=== PATIENT | female | born 1965 | race Caucasian/White ===

== ENCOUNTER 2020-06-09 10:12 | Outpatient (REF) | payer OTHER, SELFPAY | END 2020-06-09 10:13 | disposition home or self-care (01) | LOC: HO.LAB 10:12 | PROVIDERS: PCP Internal Medicine; Visit Provider Internal Medicine | DX: Z20.822 Contact with and (suspected) exposure to COVID-19 (principal) | CPT/HCPCS: 36415; C9803; U0003; U0005 ==

== ENCOUNTER 2021-09-24 15:10 | Outpatient (REF) | payer OTHER, SELFPAY ==
--- NOTE | ~2021-09-24 | US_ITS ---
EXAMINATION: US VENOUS ULTRASOUND WITH DOPPLER LOWER EXTREMITY, RIGHT CLINICAL INFORMATION: Right lower extremity edema COMPARISON: None TECHNIQUE: Ultrasound of the deep veins is performed from the hip to the calf with compression sonography and color and pulse Doppler assessment. Spectral analysis with color-flow imaging is performed. FINDINGS: There is normal venous compression and respiratory variation and augmented flow. The visualized common femoral vein, superficial femoral vein, profunda femoral vein, popliteal vein, and the trifurcation region shows no evidence of deep venous thrombosis. There is no significant popliteal fossa cyst. If the patient's symptoms persist, followup ultrasound in 5 days 7 days might be of value to exclude proximal propagation from a non-visualized calf vein. US/US venous duplex LE RT IMPRESSION: No DVT demonstrated in the right lower extremity.
== END 2021-09-24 15:11 | disposition home or self-care (01) ==
LOC: HO.US 15:10
PROVIDERS: PCP Internal Medicine; Visit Provider Nurse Practitioner Family
DX: R60.0 Localized edema (principal)
CPT/HCPCS: 93971

== ENCOUNTER 2021-10-18 11:35 | Outpatient (REF) | payer OTHER, SELFPAY ==
--- NOTE | ~2021-10-18 | XR_ITS ---
EXAMINATION: XR KNEE, LEFT CLINICAL INFORMATION: Left knee pain COMPARISON: None TECHNIQUE: Four views of the left knee. FINDINGS: The tricompartment joint space is maintained normal. No bony erosive changes. No visible acute fracture or dislocation. There is mild suprapatellar spurring. No loose body seen. XR/XR knee LT 2V IMPRESSION: Minimal superior patellar spurring. No visible acute fracture or dislocation.
== END 2021-10-18 11:36 | disposition home or self-care (01) ==
LOC: HO.XRAY 11:35
PROVIDERS: PCP Internal Medicine; Visit Provider Internal Medicine
DX: M25.562 Pain in left knee (principal)
CPT/HCPCS: 73560

== ENCOUNTER 2021-10-19 06:24 | Outpatient (REF) | payer OTHER, SELFPAY ==
[2021-10-19 06:46] LABS: MANUAL DIFF FLAG NO
[2021-10-19 07:40] LABS: Basophils Absolute Auto 0.1 X10*3/uL (0.0-0.2); Basophils Percent Auto 0.9 % (0-2); Eosinophils Absolute Auto 0.4 X10*3/uL (0.0-0.4); Eosinophils Percent Auto 5.2 % (0-4); Hematocrit 38.4 % (37.0-47.0); Hemoglobin 12.6 g/dl (12.0-16.0); Imm Gran Abs Auto 0.02 X10*3/uL (0.00-0.03); Imm Gran Pct Auto 0.3 % (0.0-0.4); Lymphocytes Absolute Auto 1.8 X10*3/uL (1.2-4.9); Lymphocytes Percent Auto 24.5 % (20-40); Mean Corpuscular HGB Conc 32.8 g/dl (31.0-35.0); Mean Corpuscular Volume 88.5 fL (80.0-98.0); Mean Platelet Volume 10.7 fL (9.4-12.3); Monocytes Absolute Auto 0.4 X10*3/uL (0.1-1.2); Monocytes Percent Auto 5.9 % (2-11); Neutrophils Absolute Auto 4.7 x10*3/uL (2.0-8.3); Neutrophils Percent Auto 63.2 % (45-73); Platelet Count 324 X10*3/uL (160-400); Red Blood Count 4.34 X10*6/uL (4.20-5.50); Red Cell Distribution Width 13.5 % (11.0-16.0); White Blood Count 7.5 X10*3/uL (4.8-10.8)
[2021-10-19 07:58] LABS: Alanine Aminotransferase 8 U/L (0-31); Albumin Level 3.9 g/dL (3.5-5.0); Alkaline Phosphatase 86 U/L (39-117); Anion Gap 11 (12-20); Aspartate Amino Transferase 14 U/L (5-31); Bilirubin Total 0.2 mg/dL (0.0-1.0); Blood Urea Nitrogen 12 mg/dL (9-16); Calcium 8.9 mg/dL (8.4-10.2); Carbon Dioxide 26 mmol/L (22-29); Chloride 107 mmol/L (96-108); Cholesterol 169 mg/dL; Estimated Glomerular Filt Rate > 60; Glucose Fasting 91 mg/dL (60-99); HDL Cholesterol 55 mg/dL; LDL Cholesterol Calculated 97 mg/dl; Potassium 4.6 mmol/L (3.3-5.1); Sodium 139 mmol/L (135-145); Total Protein 6.9 g/dL (6.5-8.0); Triglycerides 88 mg/dL
[2021-10-19 08:20] LABS: Thyroid Stimulating Hormone 0.93 uIU/mL (0.32-4.0)
== END 2021-10-19 06:25 | disposition home or self-care (01) ==
LOC: HO.LAB 06:24
PROVIDERS: PCP Internal Medicine; Visit Provider Internal Medicine
DX: Z13.0 Encounter for screening for diseases of the blood and blood-forming organs and certain disorders involving the immune mechanism (principal); E78.5 Hyperlipidemia, unspecified; E03.9 Hypothyroidism, unspecified; I10 Essential (primary) hypertension
CPT/HCPCS: 36415; 80053; 80061; 84443; 85025

== ENCOUNTER 2022-11-18 09:59 | Outpatient (AMB) | payer OTHER, SELFPAY ==
--- NOTE | 2022-11-18 10:04 | MHC.PC.OV ---
Vital Signs 11/18/22 10:06 Height 5 ft 2 in Weight 243 lb 2 oz BMI 44.5 BP 140/76 H Blood Pressure Location Rt brachial Position Sitting Pulse 85 Pulse Source Pulse Oximeter Pulse Oximetry (%) 98 Oxygen Delivery Method Room Air Intake Visit Reasons: Pneumonia /Asthma walk in f/u Intake Note: Patient is here today for asthma, pneumonia, and blister around mouth. Clinical Resource Manager Required: No Assistant Production Manager: Not Required per policy Accompanied by: Self / Same As Patient Allergies docosanol [From Abreva] Allergy (Intermediate, Verified 11/18/22 10:09) Blister Medication List - Last Reconciled 11/18/22 by Issac Lazar MD albuterol sulfate 90 mcg/actuation (ProAir RespiClick) 2 inhalations inhalation Q4H PRN 30 days azithromycin take 500 mg today (day 1), then 250 mg for 4 days (days 2-5) PO betamethasone dipropionate 0.05% 1 appl topical BID 2 weeks levothyroxine 125 mcg PO DAILY mupirocin 2% 1 appl topical TID Tobacco use date assessed: 11/18/22 Dental Screening Dental Screen Date: 11/18/22 Did you have a dental visit in the last 12 months?: No Did you have a dental problem in the last 6 months where you did not have access to dental care?: No Was dental information given to patient?: No HPI Pneumonia /Asthma walk in f/u HPI Details went to and told she has pneumonia; given antibiotics; still coughing PFSH Surgical History H/O unilateral oophorectomy Family History Mother Diabetes Father Diabetes Social History Housing: House Alcohol intake: current Alcohol intake frequency: holidays/special occasions only Alcohol type: wine Patient Tobacco Use Status: Never used Tobacco e-Cigarette/Vaping Use: Never Used Second Hand Smoke Exposure: No service: No Current occupational status: employed Cognitive needs: No Hearing needs: No Vision needs: No Questionnaire PHQ-9 Over the last 2 weeks, how often have you been bothered by any of the following problems? 1. Little interest or pleasure in doing things: not at all 2. Feeling down, depressed, or hopeless: not at all 3. Trouble falling or staying asleep, or sleeping too much: not at all 4. Feeling tired or having little energy: not at all 5. Poor appetite or overeating: not at all 6. Feeling bad about yourself - or that you are a failure or have let yourself or your family down: not at all 7. Trouble concentrating on things, such as reading the newspaper or watching television: not at all 8. Moving or speaking so slowly that other people could have noticed. Or the opposite - being so fidgety or restless that you have been moving around a lot more than usual: not at all 9. Thoughts that you would be better off or of hurting yourself in some way: not at all Total score: 0 Depression Screening Interpretation: Negative Source: Developed by Drs. Jerardo Clay, Janet Olmos, Victor M Perez and colleagues, with an educational cayla from [employer]. Thrive Questionnaire Date Thrive assessed: 11/18/22 I am a: Patient What is your living situation today?: I have a steady place to live Within the past 12 months, did the food you bought not last and you didn't have the money to get more?: Never true Within the past 12 months, did you worry whether your food would run out before you got money to buy more?: Never true Do you have trouble paying for medicines?: No Do you have trouble getting transportation to medical appointments?: No Do you have trouble paying your heating and electricity bill?: No Do you have trouble taking care of your child, family member or friend?: No Do you have trouble with day-to-day activities such as bathing, preparing meals, shopping, managing finances, etc.?: No Are you currently unemployed and looking for a job?: No Are you interested in more education?: No Currently or been in a relationship where the following occur: no concerns reported AUDIT C Alcohol Use Questionnaire (AUDIT-C) 1. How often do you have a drink containing alcohol?: Monthly or less 2. How many drinks containing alcohol do you have on a typical day when you are drinking?: 1 or 2 Total Score: 1 GUICHO-7 AMB Questionnaire GUICHO-7 Date GUICHO - 7 assessed: 11/18/22 Feeling nervous, anxious, or on edge: 0 = Not at all Not being able to stop or control worryin = Not at all Worrying too much about different things: 0 = Not at all Trouble relaxin = Not at all Being so restless that it is hard to sit still: 0 = Not at all Becoming easily annoyed or irritable: 0 = Not at all Feeling afraid as if something awful might happen: 0 = Not at all Total GUICHO-7 score (0-4 normal; 5-9 mild; 10-14 moderate; 15-21 severe): 0 Source: Developed by Drs. Jerardo Clay, Janet Olmos, Victor M Perez and colleagues, with an educational cayla from [employer]. Review of Systems Const Denies chills, Denies headache(s) and Denies weight loss ENT Denies headache(s) Card Denies chest pain, Denies syncope, Denies irregular heart rhythm and Denies dyspnea Resp Denies dyspnea GI Denies abdominal pain, Denies change in stool character, Denies nausea and Denies vomiting Musc Denies deformity and Denies joint swelling Neuro Denies syncope and Denies headache(s) Physical exam (Primary Care) Vital Signs: Last Vital Signs Pulse 85 11/18/22 10:06 BP 140/76 H 11/18/22 10:06 Pulse Ox 98 11/18/22 10:06 Oxygen Delivery Method Room Air 11/18/22 10:06 BMI result Body Mass Index 44.5 morbid obesity BMI Assessment/Plan discussion: High BMI High, discussed plan: lifestyle, weight reduction, dietary and physical activity Tobacco/Smoking Status: Tobacco use Status Tobacco use date assessed 11/18/22 11/18/22 10:11 Patient Tobacco Use Status Never used Tobacco 11/18/22 10:04 e-Cigarette/Vaping Use Never Used 11/18/22 10:11 PHQ-9: PHQ-9 Score PHQ-9: Total score 0 11/18/22 10:11 Depression Screening Interpretation: Negative Thrive Assessment: Date of Thrive Assessment Date Thrive assessed 11/18/22 11/18/22 10:11 Currently or been in a relationship where the following occur: no concerns reported Const General: cooperative and comfortable Resp Auscultation: clear to auscultation bilaterally Percussion: percussion normal Cardio Jugular venous distension: no JVD Rate: regular rate Rhythm: regular rhythm GI Inspection: Yes normal to inspection Extrem General: Yes normal to inspection Assessment and Plan Assessment & Plan (1) Cough: Code(s): R05.9 - Cough, unspecified Plan: cxr and rx Orders: Orders XR chest 2V Today R05.9 - Cough, unspecified Medications: New azithromycin take 500 mg today (day 1), then 250 mg for 4 days (days 2-5) PO 6 tabs 0RF mupirocin 2% 1 appl topical TID 15 grams 1RF Coding Level of Care Code Est Pt Level 3 (09810) Diagnoses Cough R05.9
[2022-11-18 10:06] VITALS: BP 140/76; PULSE 85; O2SAT 98; BMI 44.5
== END 2022-11-18 10:20 | disposition home or self-care (01) ==
PROVIDERS: PCP Internal Medicine; Visit Provider Internal Medicine
DX: R05.9 Cough, unspecified (principal)
CPT/HCPCS: 99213

== ENCOUNTER 2022-11-18 10:32 | Outpatient (REF) | payer OTHER, SELFPAY ==
--- NOTE | ~2022-11-18 | XR_ITS ---
EXAMINATION: XR CHEST CLINICAL INFORMATION: Cough COMPARISON: Chest radiograph from 05/19/2008 TECHNIQUE: 2 views of the chest were obtained. FINDINGS: Bilateral low lung volumes. Interstitial prominence. Bibasilar atelectasis. No pneumothorax. Trachea is midline. Cardiac mediastinal silhouette is not enlarged. Aorta demonstrates tortuosity. Slight levocurvature of the thoracolumbar spine. Soft tissues are unremarkable. XR/XR chest 2V IMPRESSION: 1. Bilateral low lung volumes. 2. Interstitial prominence. 3. Bibasilar atelectasis.
== END 2022-11-18 10:33 | disposition home or self-care (01) ==
LOC: HO.XRAY 10:32
PROVIDERS: PCP Internal Medicine; Visit Provider Internal Medicine
DX: R05.9 Cough, unspecified (principal)
CPT/HCPCS: 71046

== ENCOUNTER 2022-11-20 09:03 | Outpatient (AMB) | payer OTHER, SELFPAY ==
--- NOTE | 2022-11-20 09:06 | MHC.PC.OV ---
Vital Signs 11/20/22 09:07 Height 5 ft 2 in Weight 239 lb 8 oz BMI 43.8 BP 132/80 Blood Pressure Location Lt brachial Position Sitting Pulse 79 Pulse Source Pulse Oximeter Pulse Oximetry (%) 98 Oxygen Delivery Method Room Air Intake Visit Reasons: blisters on lip Intake Note: Patient is here to follow up on blisters on lips. Biometrics Experimentalist Required: No Radioisotope Production Operator: Not Required per policy Accompanied by: Self / Same As Patient Allergies docosanol [From Abreva] Allergy (Intermediate, Verified 11/20/22 09:07) Blister Medication List - Last Reconciled 11/20/22 by Issac Lazar MD albuterol sulfate 90 mcg/actuation (ProAir RespiClick) 2 inhalations inhalation Q4H PRN 30 days azithromycin take 500 mg today (day 1), then 250 mg for 4 days (days 2-5) PO betamethasone dipropionate 0.05% 1 appl topical BID 2 weeks levothyroxine 125 mcg PO DAILY mupirocin 2% 1 appl topical TID Tobacco use date assessed: 11/18/22 HPI blisters on lip HPI Details continues with impetigo, only been on rx for 1 day; started yeterday; needs to cont current rx PFSH Surgical History H/O unilateral oophorectomy Family History Mother Diabetes Father Diabetes Social History Housing: House Alcohol intake: current Alcohol intake frequency: holidays/special occasions only Alcohol type: wine Patient Tobacco Use Status: Never used Tobacco e-Cigarette/Vaping Use: Never Used Second Hand Smoke Exposure: No service: No Current occupational status: employed Cognitive needs: No Hearing needs: No Vision needs: No Questionnaire Thrive Questionnaire Date Thrive assessed: 11/18/22 GUICHO-7 AMB Questionnaire GUICHO-7 Date GUICHO - 7 assessed: 11/18/22 Source: Developed by Drs. Jerardo Clay, Janet Olmos, Victor M Perez and colleagues, with an educational cayla from [employer]. Review of Systems Const Denies chills, Denies headache(s) and Denies weight loss ENT Denies headache(s) Card Denies chest pain, Denies syncope, Denies irregular heart rhythm and Denies dyspnea Resp Denies chest congestion, Denies cough and Denies dyspnea GI Denies abdominal pain, Denies change in stool character, Denies nausea and Denies vomiting Musc Denies deformity and Denies joint swelling Neuro Denies syncope and Denies headache(s) Physical exam (Primary Care) Vital Signs: Last Vital Signs Pulse 79 11/20/22 09:07 BP 132/80 11/20/22 09:07 Pulse Ox 98 11/20/22 09:07 Oxygen Delivery Method Room Air 11/20/22 09:07 BMI result Body Mass Index 43.8 Tobacco/Smoking Status: Tobacco use Status Tobacco use date assessed 11/18/22 11/20/22 09:11 Patient Tobacco Use Status Never used Tobacco 11/20/22 09:11 e-Cigarette/Vaping Use Never Used 11/20/22 09:11 Thrive Assessment: Date of Thrive Assessment Date Thrive assessed 11/18/22 11/20/22 09:11 Const General: cooperative and no acute distress HENMT Head: Yes normal to inspection Eyes General: appearance normal, both eyes and all related structures Neck Neck: Yes normal visual inspection Skin Other: impetigo around lips Assessment and Plan Assessment & Plan (1) Impetigo: Code(s): L01.00 - Impetigo, unspecified Plan: cont current rx Coding Level of Care Code Est Pt Level 3 (07620) Diagnoses Impetigo L01.00
[2022-11-20 09:07] VITALS: BP 132/80; PULSE 79; O2SAT 98; BMI 43.8
== END 2022-11-20 09:35 | disposition home or self-care (01) ==
PROVIDERS: PCP Internal Medicine; Visit Provider Internal Medicine
DX: L01.00 Impetigo, unspecified (principal)
CPT/HCPCS: 99213

== ENCOUNTER 2022-11-23 19:45 | Emergency (ER) | payer OTHER, SELFPAY ==
[2022-11-23 20:19] VITALS: BP 151/97; PULSE 87; RESP 16; TEMP 36.7; O2SAT 99; BMI 40.7
--- NOTE | 2022-11-23 20:25 | ED.HA ---
HPI - Headache General Chief Complaint: Headache Stated Complaint: left sided head pain Time Seen by Provider: 11/24/22 02:39 Source: patient Mode of arrival: ambulatory Limitations: no limitations History of Present Illness HPI Narrative: Patient had rash on her lips with pain in the head for 1 week seen at urgent care please start her on antibiotic for bronchitis comes here as pain is still there in the head with rash on the lips rash was blister with clear fluid is both sides of frenulum and angle of the mouth pain is shooting and behind the ear no rash noticed except for old eczema Related Data Previous Rx's Medication Instructions Recorded albuterol sulfate 90 mcg/actuation 2 inh inhalation Q4H PRN shortness 03/02/21 breath activated powder inhaler of breath or wheezing 30 days #1 ea (ProAir RespiClick) betamethasone dipropionate 0.05 % 1 appl topical BID rash 2 weeks 10/10/21 topical cream #45 grams levothyroxine 125 mcg tablet 125 mcg PO DAILY #90 tabs 04/22/22 azithromycin 250 mg tablet See Rx Instructions PO .COMPLEX #6 11/18/22 tabs mupirocin 2 % topical ointment 1 appl topical TID #15 grams 11/18/22 gabapentin 300 mg capsule 300 mg PO BID #60 caps 11/24/22 valacyclovir 1 gram tablet 1,000 mg PO TID #20 tabs 11/24/22 (Valtrex) amoxicillin 875 mg-potassium 1 tab PO BID #20 tabs 11/26/22 clavulanate 125 mg tablet cmjfszufrx-xdtrrqhbrtpor-aofhdbfh 1 tab PO Q6H PRN pain #20 tabs 11/26/22 50 mg-325 mg-40 mg tablet Allergies Allergy/AdvReac Type Severity Reaction Status Date / Time docosanol [From Abreva] Allergy Intermediate Blister Verified 11/20/22 09:07 Review of Systems Review of Systems: Yes all other systems are reviewed and are negative PMFSH Past Medical History Surgical History H/O unilateral oophorectomy Family History Family History Mother Diabetes Father Diabetes Social History Social History Housing: House Alcohol intake: never Patient Tobacco Use Status: Never used Tobacco Smoked in Last 30 Days: No e-Cigarette/Vaping Use: Never Used Second Hand Smoke Exposure: No Use of substances other than those prescribed or required for medical reasons: No Advance Directives: No Advance Directives Information Provided: Yes service: No Current occupational status: employed Cognitive needs: No Hearing needs: No Vision needs: No Physical Exam Vital Signs: Vital Signs: Last Vital Signs Temp 98.1 F 11/23/22 20:19 Pulse 87 11/23/22 20:19 Resp 16 11/23/22 20:19 BP 151/97 H 11/23/22 20:19 Pulse Ox 99 11/23/22 20:19 O2 Del Method Room Air 11/23/22 20:19 BMI result Body Mass Index 40.7 HEENT: Head: Yes normal to inspection Head images: 1. Ulcerated ulcer lesion upper lip tender to touch 2. Ulcerated lesion on the angle of the mouth left side Ears: hearing grossly normal bilaterally and no periauricular adenopathy General nose exam: Normal external nose present and Abnormal mucous membranes and turbinates present Face and sinus: Yes sinuses nontender and No sinus tenderness Mouth: Normal oral and palatal mucosa present Teeth and gingiva: dentition normal Course Course Course Narrative: This is an RME: Additional HPI, ROS, PE not included below will be deferred to primary provider. Patient is a 57 year old female who presents emergency department for evaluation of concern regarding headache. She reports that on 11/14/22 she was diagnosed with pneumonia for which she received prescription for doxycycline and subsequently azithromycin, 3 days later she developed lesions to her lips, and a reoccurring left occipital/parietal headache since being diagnosed with pneumonia. It does alleviate completely with ibuprofen but then returns. The headache persist which is most concerning for her. reports subjective fevers. Denies neck pain, neck stiffness, photophobia, phonophobia, ear pain Medications Administered Discontinued Medications Generic Name Dose Route Start Last Admin Trade Name Alessandroq PRN Reason Stop Dose Admin Gabapentin 300 mg 11/24/22 03:11 11/24/22 03:38 Gabapentin 300 Mg Capsule PO 11/24/22 03:12 300 mg ONCE ONE Administration Valacyclovir HCl 1,000 mg 11/24/22 03:11 11/24/22 03:37 Valacyclovir Hcl 1,000 Mg Tablet PO 11/24/22 03:12 1,000 mg ONCE ONE Administration Medical Decision Making Medical Decision Making [facility] Narrative: Patient with neuralgic pain secondary to shingles likely as a cause of pain will give gabapentin and valtrex and discharge patient home no temporal artery tenderness discharge patient home Lab Data [facility] Lab Attestation statement: I reviewed the patient's lab results. 11/23/22 20:48 11/23/22 20:48 Labs: Lab Results 11/23/22 11/23/22 Range/Units 20:48 20:48 WBC 9.2 (4.8-10.8) X10*3/uL RBC 4.65 (4.20-5.50) X10*6/uL Hgb 13.7 (12.0-16.0) g/dl Hct 42.1 (37.0-47.0) % MCV 90.5 (80.0-98.0) fL MCH 29.5 (27.0-33.0) pg MCHC 32.5 (31.0-35.0) g/dl RDW 13.6 (11.0-16.0) % Plt Count 334 (160-400) X10*3/uL MPV 10.7 (9.4-12.3) fL Immature Gran % (Auto) 0.4 (0.0-0.4) % Neut % (Auto) 63.5 (45-73) % Lymph % (Auto) 25.9 (20-40) % [place] % (Auto) 6.8 (2-11) % Eos % (Auto) 2.4 (0-4) % Baso % (Auto) 1.0 (0-2) % Lymph # (Auto) 2.4 (1.2-4.9) X10*3/uL [place] # (Auto) 0.6 (0.1-1.2) X10*3/uL Eos # (Auto) 0.2 (0.0-0.4) X10*3/uL Baso # (Auto) 0.1 (0.0-0.2) X10*3/uL Abs Immat Gran (auto) 0.04 H (0.00-0.03) X10*3/uL Absolute Neuts (auto) 5.8 (2.0-8.3) x10*3/uL Absolute Nucleated RBC 0.000 (0.0-0.012) X10*3/uL Nucleated RBC % (auto) 0.0 (0.0-0.2) /100WBC Sodium 143 (135-145) mmol/L Potassium 4.3 (3.3-5.1) mmol/L Chloride 107 (96-108) mmol/L Carbon Dioxide 24 (22-29) mmol/L Anion Gap 16 (12-20) BUN 15 (9-16) mg/dL Creatinine 0.81 (0.5-1.4) mg/dL Estim Creat Clear Calc 90.6 Estimated GFR > 60 Random Glucose 90 (60-115) mg/dL Calcium 9.8 D (8.4-10.2) mg/dL Magnesium 2.2 (1.6-2.6) mg/dL Total Bilirubin 0.3 (0.0-1.0) mg/dL AST 12 (5-31) U/L ALT 11 (0-31) U/L Alkaline Phosphatase 67 (39-117) U/L Total Protein 7.5 (6.5-8.0) g/dL Albumin 4.1 (3.5-5.0) g/dL Discharge Plan Discharge Clinical Impression: Shingles Patient Disposition: Home, Self-Care Instructions: Shingles (ED) Additional Instructions: Likely you have pain from healing shingles Take medication as prescribed and follow with PCP if any concerns Prescriptions: New valacyclovir [Valtrex] 1 gram tablet 1,000 mg PO TID Qty: 20 0RF gabapentin 300 mg capsule 300 mg PO BID Qty: 60 0RF No Action ProAir RespiClick 90 mcg/actuation aerosol powdr breath activated 2 inh inhalation Q4H PRN (Reason: shortness of breath or wheezing) 30 Days Qty: 1 8RF levothyroxine 125 mcg tablet 125 mcg PO DAILY Qty: 90 8RF pvviyyhkkl-rojmbcsmqjxjr-utbw 50-325-40 mg tablet 1 tab PO Q6H PRN (Reason: pain) Qty: 20 0RF amoxicillin-pot clavulanate 875-125 mg tablet 1 tab PO BID Qty: 20 0RF betamethasone dipropionate 0.05 % cream 1 appl topical BID 14 Days Qty: 45 0RF azithromycin 250 mg tablet See Rx Instructions PO .COMPLEX Qty: 6 0RF Rx Instructions: take 500 mg today (day 1), then 250 mg for 4 days (days 2-5) PO mupirocin 2 % ointment 1 appl topical TID Qty: 15 1RF Interventions: ED Discharge Assessment Last Done: 11/24/22 03:56 Discharge Date/Time: 11/24/22 03:59
--- OUTSIDE RECORDS SUMMARY | 2022-11-23 20:52 | XMS_ITS | Continuity of Care Document ---
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
[2022-11-23 20:54] LABS: MANUAL DIFF FLAG NO
[2022-11-23 20:59] LABS: Basophils Absolute Auto 0.1 X10*3/uL (0.0-0.2); Eosinophils Absolute Auto 0.2 X10*3/uL (0.0-0.4); Eosinophils Percent Auto 2.4 % (0-4); Hematocrit 42.1 % (37.0-47.0); Hemoglobin 13.7 g/dl (12.0-16.0); Imm Gran Abs Auto 0.04 X10*3/uL (0.00-0.03); Imm Gran Pct Auto 0.4 % (0.0-0.4); Lymphocytes Absolute Auto 2.4 X10*3/uL (1.2-4.9); Lymphocytes Percent Auto 25.9 % (20-40); Mean Corpuscular HGB Conc 32.5 g/dl (31.0-35.0); Mean Corpuscular Hemoglobin 29.5 pg (27.0-33.0); Mean Corpuscular Volume 90.5 fL (80.0-98.0); Mean Platelet Volume 10.7 fL (9.4-12.3); Monocytes Absolute Auto 0.6 X10*3/uL (0.1-1.2); Monocytes Percent Auto 6.8 % (2-11); Neutrophils Absolute Auto 5.8 x10*3/uL (2.0-8.3); Neutrophils Percent Auto 63.5 % (45-73); Platelet Count 334 X10*3/uL (160-400); Red Blood Count 4.65 X10*6/uL (4.20-5.50); Red Cell Distribution Width 13.6 % (11.0-16.0); White Blood Count 9.2 X10*3/uL (4.8-10.8)
[2022-11-23 21:27] LABS: Alanine Aminotransferase 11 U/L (0-31); Albumin Level 4.1 g/dL (3.5-5.0); Alkaline Phosphatase 67 U/L (39-117); Anion Gap 16 (12-20); Aspartate Amino Transferase 12 U/L (5-31); Bilirubin Total 0.3 mg/dL (0.0-1.0); Blood Urea Nitrogen 15 mg/dL (9-16); Calcium 9.8 mg/dL (8.4-10.2); Carbon Dioxide 24 mmol/L (22-29); Chloride 107 mmol/L (96-108); Creatinine Clr Calc Pharmacy 90.6; Estimated Glomerular Filt Rate > 60; Glucose Random 90 mg/dL (60-115); Magnesium 2.2 mg/dL (1.6-2.6); Potassium 4.3 mmol/L (3.3-5.1); Sodium 143 mmol/L (135-145); Total Protein 7.5 g/dL (6.5-8.0)
[2022-11-24] MEDS: valACYclovir HCL 1,000 MG TABLET 1000 MG PO (03:37)
[2022-11-24] MEDS: Gabapentin 300 MG CAPSULE PO (03:38)
== END 2022-11-24 03:59 | disposition home or self-care (01) ==
PROVIDERS: Nurse Practitioner Family; Emergency Provider Internal Medicine; PCP Internal Medicine
DX: B02.9 Zoster without complications (principal)
CPT/HCPCS: 36415; 80053; 83735; 85025; 99283; 99284

== ENCOUNTER 2022-11-26 18:12 | Emergency (ER) | payer OTHER, SELFPAY ==
--- NOTE | ~2022-11-26 | CT_ITS ---
EXAMINATION: CT HEAD WITHOUT CONTRAST CLINICAL INFORMATION: Left occipital pain COMPARISON: None available. TECHNIQUE: Contiguous axial imaging was performed from the skull base to vertex without intravenous administration of contrast. This CT examination was performed using dose optimization techniques as appropriate, variously including the following: *Automated exposure control *Adjustment of mA and/or kV according to patient size (this includes techniques or standardized protocols for targeted exams where dose is matched to indication/reason for exam; i.e. extremities or head) *Use of iterative reconstruction technique DLP: 668 mGy-cm FINDINGS: There is no acute intra-axial, extra-axial bleed, masses or midline shift. There is no acute infarction evolution. There is no edema. The lateral ventricles are symmetrical in size and configuration without enlargement. Bone windows reveal no calvarial abnormality. There is no scalp soft tissue abnormality. There is air-fluid level in bilateral maxillary sinuses. Rest of the paranasal sinuses and mastoid air cells are well-aerated. CT/CT head/brain wo IV con IMPRESSION: 1. No acute intracranial process seen. 2. Bilateral acute maxillary sinusitis.
[2022-11-26 18:15] VITALS: BP 163/104; PULSE 90; RESP 18; TEMP 36.9; O2SAT 98; BMI 41.6
--- NOTE | 2022-11-26 18:16 | ED_ITS ---
HPI - Headache General Chief Complaint: Head Injury Stated Complaint: Severe head pain Time Seen by Provider: 11/26/22 20:48 Source: patient Mode of arrival: ambulatory Limitations: no limitations History of Present Illness HPI Narrative: Patient has been having left-sided headache for last 2 weeks has some rash on the upper lip was seen here on 11/23 diagnosis at [facility] and started on valacyclovir now comes here as pain in the left occipital area is shooting pain and not going away patient was prescribed gabapentin for the pain patient also does have a running nose with p.o. mucopurulent discharge bilateral no frontal headache no shortness of breath cough is getting better Related Data Previous Rx's Medication Instructions Recorded albuterol sulfate 90 mcg/actuation 2 inh inhalation Q4H PRN shortness 03/02/21 breath activated powder inhaler of breath or wheezing 30 days #1 ea (ProAir RespiClick) betamethasone dipropionate 0.05 % 1 appl topical BID rash 2 weeks 10/10/21 topical cream #45 grams levothyroxine 125 mcg tablet 125 mcg PO DAILY #90 tabs 04/22/22 azithromycin 250 mg tablet See Rx Instructions PO .COMPLEX #6 11/18/22 tabs mupirocin 2 % topical ointment 1 appl topical TID #15 grams 11/18/22 gabapentin 300 mg capsule 300 mg PO BID #60 caps 11/24/22 valacyclovir 1 gram tablet 1,000 mg PO TID #20 tabs 11/24/22 (Valtrex) amoxicillin 875 mg-potassium 1 tab PO BID #20 tabs 11/26/22 clavulanate 125 mg tablet vvqyecexjw-hkgbpzchgqrch-ojylshlk 1 tab PO Q6H PRN pain #20 tabs 11/26/22 50 mg-325 mg-40 mg tablet Allergies Allergy/AdvReac Type Severity Reaction Status Date / Time docosanol [From Abreva] Allergy Intermediate Blister Verified 11/20/22 09:07 Review of Systems Review of Systems: Yes all other systems are reviewed and are negative PMF Past Medical History Surgical History H/O unilateral oophorectomy Family History Family History Mother Diabetes Father Diabetes Social History Social History Housing: House Alcohol intake: never Patient Tobacco Use Status: Never used Tobacco Smoked in Last 30 Days: No e-Cigarette/Vaping Use: Never Used Second Hand Smoke Exposure: No Use of substances other than those prescribed or required for medical reasons: No Advance Directives: No Advance Directives Information Provided: Yes service: No Current occupational status: employed Cognitive needs: No Hearing needs: No Vision needs: No Physical Exam Vital Signs: Vital Signs: Last Vital Signs Temp 98.4 F 11/26/22 18:15 Pulse 90 11/26/22 18:15 Resp 18 11/26/22 18:15 BP 163/104 H 11/26/22 18:15 Pulse Ox 98 11/26/22 18:15 O2 Del Method Room Air 11/26/22 18:15 BMI result Body Mass Index 41.6 Appearance: Alert. Oriented X3. No acute distress. Eyes: No pallor/ icterus ENT: Pharynx normal. Oral Mucosa moist clear nasal discharge no occipital tenderness nose no rash on the scalp Neck: Normal inspection. Neck supple. CVS: Normal heart rate and rhythm. Pulses normal. Respiratory: No respiratory distress. Equal air entry bilateral, no wheezing/rales/rhonchi Abdomen: Soft and nontender. Bowel sounds are present, no mass palpable, no CVA tenderness Skin: Skin warm and dry. Normal skin color. Normal skin turgor. Extremities: No lower extremity edema. No calf tenderness Neuro: Oriented X 3. No motor deficit. No sensory deficit.No cerebellar signs , cranial nerves II-XII intact Course Course Course Narrative: RME - 57 yo female presenting to the ER for evaluation of a severe sharp left sided headache that started over a week ago. No improvement with advil or tylenol. Reports the pain is 8/10. No vision changes, weakness, numbness, tingling. Seen here 3 days ago and diagnosed with shingles - discharged with valtrex and gabapentin. no improvement w/ gabapentin. Plan: treat and reassess Medical Decision Making Medical Decision Making MDM Narrative: Patient nonspecific pain in the left side of the head CT scan of the head showed acute maxillary sinus fluid levels with history of acute maxillary sinusitis. Will discharge patient on Fioricet and Augmentin Discharge Plan Discharge Clinical Impression: Sinusitis, Headache Patient Disposition: Home, Self-Care Instructions: Sinusitis (ED), General Headache (ED) Additional Instructions: Medication for headache as prescribed Take antibiotic for sinus infection Follow with PCP Prescriptions: New rhrypzxcos-nyuzsqefqwqdx-meol 50-325-40 mg tablet 1 tab PO Q6H PRN (Reason: pain) Qty: 20 0RF amoxicillin-pot clavulanate 875-125 mg tablet 1 tab PO BID Qty: 20 0RF No Action ProAir RespiClick 90 mcg/actuation aerosol powdr breath activated 2 inh inhalation Q4H PRN (Reason: shortness of breath or wheezing) 30 Days Qty: 1 8RF levothyroxine 125 mcg tablet 125 mcg PO DAILY Qty: 90 8RF valacyclovir [Valtrex] 1 gram tablet 1,000 mg PO TID Qty: 20 0RF gabapentin 300 mg capsule 300 mg PO BID Qty: 60 0RF betamethasone dipropionate 0.05 % cream 1 appl topical BID 14 Days Qty: 45 0RF azithromycin 250 mg tablet See Rx Instructions PO .COMPLEX Qty: 6 0RF Rx Instructions: take 500 mg today (day 1), then 250 mg for 4 days (days 2-5) PO mupirocin 2 % ointment 1 appl topical TID Qty: 15 1RF
--- NOTE | 2022-11-26 20:44 | PC.NURSE ---
Pt reports neck/head pain 11/28 onset 2 1/2 wks ago and when diagnosed with pneumonia and its been progressively getting worse. Pt denies head strike or injury. Plan of care ongoing.
[2022-11-26] MEDS: Amoxicillin/Potassium Clav 875 MG TABLET PO (22:36)
[2022-11-26] MEDS: Butalb/Acetamin/Caff 50/325/40 TABLET 1 TAB PO (22:36)
--- NOTE | 2022-11-26 22:40 | PC.NURSE ---
Pt medicated per mar.
== END 2022-11-26 22:44 | disposition home or self-care (01) ==
PROVIDERS: Emergency Provider Internal Medicine; PCP Internal Medicine
DX: J32.9 Chronic sinusitis, unspecified (principal); R51.9 Headache, unspecified; Z79.899 Other long term (current) drug therapy
CPT/HCPCS: 70450; 99284

== ENCOUNTER 2023-03-28 09:24 | Outpatient (AMB) | payer OTHER, SELFPAY ==
[2023-03-28 09:29] VITALS: BP 138/70; PULSE 70; O2SAT 100; BMI 44.5
--- NOTE | 2023-03-28 09:29 | A.OFFPC_ITS ---
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 Accompanied by: Self / Same As Patient Allergies docosanol [From Abreva] Allergy (Intermediate, Verified 03/28/23 09:30) Blister Medication List - Last Reconciled 03/28/23 by Issac Lazar MD albuterol sulfate 90 mcg/actuation (ProAir RespiClick) 2 inhalations inhalation Q4H PRN 30 days levothyroxine 125 mcg PO DAILY Tobacco use date assessed: 11/18/22 Dental Screening Dental Screen Date: 03/28/23 Did you have a dental visit in the last 12 months?: No Did you have a dental problem in the last 6 months where you did not have access to dental care?: No Was dental information given to patient?: Yes HPI floater on eyes HPI Details dark spots in vision of both eyes chichi a few weeks PFSH Surgical History H/O unilateral oophorectomy Family History Mother Diabetes Father Diabetes Social History Housing: House Alcohol intake: never Patient Tobacco Use Status: Never used Tobacco e-Cigarette/Vaping Use: Never Used Second Hand Smoke Exposure: No service: No Current occupational status: employed Cognitive needs: No Hearing needs: No Vision needs: No Questionnaire Thrive Questionnaire Date Thrive assessed: 11/18/22 GUICHO-7 AMB Questionnaire GUICHO-7 Date GUICHO - 7 assessed: 11/18/22 Source: Developed by Drs. Jerardo Clay, Janet Olmos, Victor M Perez and colleagues, with an educational cayla from [employer]. Review of Systems Const Denies chills, Denies headache(s) and Denies weight loss ENT Denies headache(s) Card Denies chest pain, Denies syncope, Denies irregular heart rhythm and Denies dyspnea Resp Denies chest congestion, Denies cough and Denies dyspnea GI Denies abdominal pain, Denies change in stool character, Denies nausea and Denies vomiting Musc Denies deformity and Denies joint swelling Neuro Denies syncope and Denies headache(s) Physical exam (Primary Care) Vital Signs: Last Vital Signs Pulse 70 03/28/23 09:29 BP 138/70 03/28/23 09:29 Pulse Ox 100 03/28/23 09:29 Oxygen Delivery Method Room Air 03/28/23 09:29 BMI result Body Mass Index 44.5 Tobacco/Smoking Status: Tobacco use Status Tobacco use date assessed 11/18/22 03/28/23 09:35 Patient Tobacco Use Status Never used Tobacco 03/28/23 09:35 e-Cigarette/Vaping Use Never Used 03/28/23 09:35 Thrive Assessment: Date of Thrive Assessment Date Thrive assessed 11/18/22 03/28/23 09:35 Const General: cooperative, comfortable, no acute distress and alert Neck Neck: Yes no lymphadenopathy Thyroid: Thyroid normal Resp Effort & Inspection: normal respiratory effort Auscultation: clear to auscultation bilaterally Percussion: percussion normal Cardio Jugular venous distension: no JVD Palpation: normal PMI Rate: regular rate Rhythm: regular rhythm Heart sounds: S1 normal heart sound present and S2 normal heart sound present GI Inspection: Yes normal to inspection Palpation (GI): No hepatosplenomegaly present Skin General skin exam: no rashes or lesions noted Extrem General: Yes no clubbing, cyanosis or edema Assessment and Plan Assessment & Plan (1) Vision disturbance: Code(s): H53.9 - Unspecified visual disturbance Plan: ref ophth Orders: Referrals Ophthalmology Referral H43.399 - Other vitreous opacities, unspecified eye Coding Level of Care Code Est Pt Level 3 (92694) Diagnoses Vision disturbance H53.9
== END 2023-03-28 09:43 | disposition home or self-care (01) ==
PROVIDERS: PCP Internal Medicine; Visit Provider Internal Medicine
DX: H53.9 Unspecified visual disturbance (principal)
CPT/HCPCS: 99213

== ENCOUNTER 2024-01-24 08:18 | Emergency (ER) | payer OTHER, SELFPAY ==
[2024-01-24 08:22] VITALS: BP 150/81; PULSE 83; RESP 18; TEMP 36.6; O2SAT 98; BMI 41.6
--- NOTE | 2024-01-24 08:25 | ECG_ITS ---
Test Reason : epigastric pain Blood Pressure : / mmHG Vent. Rate : 074 BPM Atrial Rate : 074 BPM P-R Int : 174 ms QRS Dur : 084 ms QT Int : 390 ms P-R-T Axes : 041 007 014 degrees QTc Int : 432 ms Normal sinus rhythm Normal ECG No previous ECGs available Referred By: Generic ED Physician Electronically Signed By:LYNDA PHAM
[2024-01-24 08:46] VITALS: BP 150/81; PULSE 83; RESP 18; TEMP 36.6; O2SAT 98
[2024-01-24 08:47] LABS: Basophils Absolute Auto 0.1 X10*3/uL (0.0-0.2); Eosinophils Absolute Auto 0.3 X10*3/uL (0.0-0.4); Eosinophils Percent Auto 5.6 % (0-4); Hematocrit 37.8 % (37.0-47.0); Imm Gran Abs Auto 0.01 X10*3/uL (0.00-0.03); Imm Gran Pct Auto 0.2 % (0.0-0.4); Lymphocytes Absolute Auto 1.5 X10*3/uL (1.2-4.9); Lymphocytes Percent Auto 29.2 % (20-40); MANUAL DIFF FLAG NO; Mean Corpuscular HGB Conc 34.4 g/dl (31.0-35.0); Mean Corpuscular Hemoglobin 30.2 pg (27.0-33.0); Mean Corpuscular Volume 87.9 fL (80.0-98.0); Mean Platelet Volume 10.3 fL (9.4-12.3); Monocytes Absolute Auto 0.3 X10*3/uL (0.1-1.2); Neutrophils Absolute Auto 3.1 x10*3/uL (2.0-8.3); Platelet Count 280 X10*3/uL (160-400); Red Cell Distribution Width 13.2 % (11.0-16.0); White Blood Count 5.2 X10*3/uL (4.8-10.8)
--- NOTE | 2024-01-24 08:54 | ED.ABDPAIN ---
HPI - Abdominal Pain General Chief Complaint: Abdominal Pain Stated Complaint: stomach pain, nausea Time Seen by Provider: 01/24/24 08:53 Source: patient Mode of arrival: ambulatory Limitations: no limitations History of Present Illness ED Provider: viet GIRON narrative: Patient otherwise healthy complaining of pain in epigastric area radiating to the left upper for last 1 week with nausea no vomiting no diarrhea no fever or chills no urinary symptoms no history of kidney stone no hematuria no gallstones in the past Related Data Previous Rx's ?Medication ?Instructions ?Recorded albuterol sulfate 90 mcg/actuation 2 inh inhalation Q4H PRN shortness 03/02/21 breath activated powder inhaler of breath or wheezing 30 days #1 ea (ProAir RespiClick) levothyroxine 125 mcg tablet 125 mcg PO DAILY #90 tabs 05/16/23 cefuroxime axetil 250 mg tablet 250 mg PO BID 7 days #14 tabs 01/24/24 omeprazole 40 mg capsule,delayed 40 mg PO DAILY #30 caps 01/24/24 release Allergies Allergy/AdvReac Type Severity Reaction Status Date / Time docosanol [From Abreva] Allergy Intermediate Blister Verified 01/24/24 08:25 Review of Systems Review of Systems Yes all other systems are reviewed and are negative PMFSH Past Medical History Surgical History H/O unilateral oophorectomy Family History Family History Mother Diabetes Father Diabetes Social History Social History Housing: House Alcohol intake: never Patient Tobacco Use Status: Never used Tobacco Smoked in Last 30 Days: No e-Cigarette/Vaping Use: Never Used Second Hand Smoke Exposure: No Use of substances other than those prescribed or required for medical reasons: No Advance Directives: No Advance Directives Information Provided: No Do you have a plan to hurt others: No Plan service: No Current occupational status: employed Cognitive needs: No Hearing needs: No Vision needs: No Physical Exam ED Vital Signs: Vital Signs - 24 hr 01/24/24 08:22 01/24/24 08:46 01/24/24 10:18 Temperature 97.8 F 97.8 F 98.4 F Pulse Rate 83 83 78 Respiratory Rate 18 18 18 Blood Pressure 150/81 H 150/81 H 144/79 H Pulse Oximetry 98 98 98 Oxygen Delivery Method Room Air Room Air Room Air BMI result Body Mass Index 41.6 Appearance: Alert. Oriented X3. No acute distress. Eyes: No pallor or icterus ENT: Pharynx normal. Oral Mucosa moist Neck: Normal inspection. Neck supple. CVS: Normal heart rate and rhythm. Pulses normal. Respiratory: No respiratory distress. Equal air entry bilateral, no wheezing/rales/rhonchi Abdomen: Soft and mild epigastric tenderness Bowel sounds are present, no mass palpable, no CVA tenderness Skin: Skin warm and dry. Normal skin color. Normal skin turgor. Extremities: No lower extremity edema. No calf tenderness Neuro: Oriented X 3. No motor deficit. No sensory deficit.No cerebellar signs , cranial nerves II-XII intact Medical Decision Making Medical Decision Making MDM Narrative: Patient with epigastric pain with workup negative for acute pancreatitis or biliary colic urine is showing WBCs but patient denied dysuria will prescribe patient's Ceftin for UTI likely the cause Differential Diagnosis Differential Diagnoses: The differential diagnosis associated with the presentation includes Gastritis/UTI/kidney stone/gallstone Lab Data [facility] Lab Attestation statement: I reviewed the patient's lab results. 01/24/24 08:41 01/24/24 08:41 Labs: Lab Results 01/24/24 01/24/24 Range/Units 08:41 08:51 WBC 5.2 (4.8-10.8) X10*3/uL RBC 4.30 (4.20-5.50) X10*6/uL Hgb 13.0 (12.0-16.0) g/dl Hct 37.8 (37.0-47.0) % MCV 87.9 (80.0-98.0) fL MCH 30.2 (27.0-33.0) pg MCHC 34.4 (31.0-35.0) g/dl RDW 13.2 (11.0-16.0) % Plt Count 280 (160-400) X10*3/uL MPV 10.3 (9.4-12.3) fL Immature Gran % (Auto) 0.2 (0.0-0.4) % Neut % (Auto) 59.0 (45-73) % Lymph % (Auto) 29.2 (20-40) % Wetzel % (Auto) 5.0 (2-11) % Eos % (Auto) 5.6 H (0-4) % Baso % (Auto) 1.0 (0-2) % Lymph # (Auto) 1.5 (1.2-4.9) X10*3/uL Wetzel # (Auto) 0.3 (0.1-1.2) X10*3/uL Eos # (Auto) 0.3 (0.0-0.4) X10*3/uL Baso # (Auto) 0.1 (0.0-0.2) X10*3/uL Abs Immat Gran (auto) 0.01 (0.00-0.03) X10*3/uL Absolute Neuts (auto) 3.1 (2.0-8.3) x10*3/uL Absolute Nucleated RBC 0.000 (0.0-0.012) X10*3/uL Nucleated RBC % (auto) 0.0 (0.0-0.2) /100WBC Sodium 142 (135-145) mmol/L Potassium 4.1 (3.3-5.1) mmol/L Chloride 110 H (96-108) mmol/L Carbon Dioxide 24 (22-29) mmol/L Anion Gap 12 (12-20) BUN 14 (9-16) mg/dL Creatinine 0.75 (0.5-1.4) mg/dL Estim Creat Clear Calc 97.8 Estimated GFR > 60 Random Glucose 98 (60-115) mg/dL Calcium 9.2 D (8.4-10.2) mg/dL Total Bilirubin 0.5 (0.0-1.0) mg/dL Direct Bilirubin 0.1 (0.0-0.5) mg/dL AST 12 (5-31) U/L ALT 9 (0-31) U/L Alkaline Phosphatase 70 (39-117) U/L Troponin I High Sens < 2.7 (<3.5-17.0) ng/L Total Protein 7.2 (6.5-8.0) g/dL Albumin 4.0 (3.5-5.0) g/dL Lipase 14 (8-78) U/L Urine Color Yellow Urine Appearance Cloudy Urine pH 7.0 (5.0-9.0) Ur Specific Fitzgerald 1.015 (1.005-1.025) Urine Protein Negative (Neg-Trace) mg/dL Urine Glucose (UA) Negative (Negative) mg/dL Urine Ketones Negative (Negative) mg/dL Urine Blood Negative (Negative) Urine Nitrite Negative (Negative) Ur Leukocyte Esterase Large (3+) H (Negative) Urine RBC 0-2 (0-2) /HPF Urine WBC 11-20 H (0-5) /HPF Ur Squamous Epith Cells 11-20 (0-2) /HPF Urine Bacteria 1+ (None Seen) Hyaline Casts 0-2 (0-2) /LPF Medications Administered Discontinued Medications Generic Name Dose Route Start Last Admin Trade Name Freq PRN Reason Stop Dose Admin Al Hydroxide/Mg Hydroxide 30 ml 01/24/24 09:09 01/24/24 09:15 Magnesium Hydrox/Alum Hydrox 30 Ml Oral.Susp PO 01/24/24 09:10 30 ml ONCE ONE Administration Cefuroxime Axetil 250 mg 01/24/24 09:09 01/24/24 09:15 Cefuroxime Axetil 250 Mg Tablet PO 01/24/24 09:10 250 mg ONCE ONE Administration Discharge Plan Discharge Clinical Impression: UTI (urinary tract infection), Gastritis Patient Disposition: Home, Self-Care Instructions: Gastritis (DC), Urinary Tract Infection in Women (DC) Additional Instructions: Drink plenty of fluids Antibiotic as prescribed for urinary tract infection Avoid fried food start taking Prilosec 40 mg daily for gastritis and follow up with your PCP if not better Prescriptions: New cefuroxime axetil 250 mg tablet 250 mg PO BID 7 Days Qty: 14 0RF omeprazole 40 mg capsule,delayed release(DR/EC) 40 mg PO DAILY Qty: 30 0RF No Action ProAir RespiClick 90 mcg/actuation aerosol powdr breath activated 2 inh inhalation Q4H PRN (Reason: shortness of breath or wheezing) 30 Days Qty: 1 8RF levothyroxine 125 mcg tablet 125 mcg PO DAILY Qty: 90 8RF Interventions: ED Discharge Assessment Last Done: 01/24/24 10:18 Discharge Date/Time: 01/24/24 10:24 Print Language: [place]an
[2024-01-24 09:01] LABS: Appearance Urine Cloudy; Color Urine Yellow; Glucose Urine UA Negative (Negative); Leukocyte Esterase Urine Large (3+) (Negative); Nitrite Urine Negative (Negative); Specific Gravity - Urine 1.015 (1.005-1.025); UMIC TRIGGER UACC YES; Urine Blood Negative (Negative); Urine Ketones Negative (Negative); Urine Protein Negative (Neg-Trace)
[2024-01-24 09:06] LABS: Alanine Aminotransferase 9 U/L (0-31); Alkaline Phosphatase 70 U/L (39-117); Anion Gap 12 (12-20); Aspartate Amino Transferase 12 U/L (5-31); Bilirubin Direct 0.1 mg/dL (0.0-0.5); Bilirubin Total 0.5 mg/dL (0.0-1.0); Blood Urea Nitrogen 14 mg/dL (9-16); Calcium 9.2 mg/dL (8.4-10.2); Carbon Dioxide 24 mmol/L (22-29); Chloride 110 mmol/L (96-108); Creatinine Clr Calc Pharmacy 97.8; Estimated Glomerular Filt Rate > 60; Glucose Random 98 mg/dL (60-115); Lipase 14 U/L (8-78); Potassium 4.1 mmol/L (3.3-5.1); Sodium 142 mmol/L (135-145); Total Protein 7.2 g/dL (6.5-8.0)
[2024-01-24 09:06] LABS: Bacteria Urine 1+ (None Seen); Hyaline Casts Urine 0-2 /LPF (0-2); RBC Urine 0-2 /HPF (0-2); UACC Culture Trigger YES
[2024-01-24] MEDS: Magnesium Hydrox/Alum Hydrox 30 ML ORAL.SUSP PO (09:15)
[2024-01-24] MEDS: cefuroxime axetiL 250 MG TABLET PO (09:15)
[2024-01-24 09:21] LABS: Troponin-I High Sensitivity < 2.7 ng/L (<3.5-17.0)
[2024-01-24 10:18] VITALS: BP 144/79; PULSE 78; RESP 18; TEMP 36.9; O2SAT 98
== END 2024-01-24 10:24 | disposition home or self-care (01) ==
PROVIDERS: Emergency Provider Internal Medicine; PCP Internal Medicine
DX: N39.0 Urinary tract infection, site not specified (principal); K29.70 Gastritis, unspecified, without bleeding; R10.13 Epigastric pain; Z79.899 Other long term (current) drug therapy
CPT/HCPCS: 36415; 80048; 80076; 81001; 81003; 83690; 84484; 85025; 87086; 87147; 93005; 99283; 99285

== ENCOUNTER 2024-02-16 08:45 | Outpatient (AMB) | payer OTHER, SELFPAY ==
--- NOTE | 2024-02-16 08:58 | MHC.OFFWIV ---
Intake Vital Signs 02/16/24 08:59 Weight 239 lb BP 130/82 Blood Pressure Location Rt brachial Position Sitting Pulse 78 Pulse Source Pulse Oximeter Pulse Oximetry (%) 98 Oxygen Delivery Method Room Air Intake Visit Reasons: EP Stomach pain, Nausea Intake Note: Patient here for stomach pain and nausea that has been present for about 1 month. She states it usually comes and goes but it has become more constant. Patient Tobacco Use Status: Never used Tobacco Allergies docosanol [From Abreva] Allergy (Intermediate, Verified 02/16/24 09:00) Blister Do you need a note to return to daycare/school/sports/work: Yes HPI HPI Comments History of Present Illness Details Patient is a 58-year-old female complaining of burning in her middle upper abdomen for the last month. She said she has had episodes of nausea with no vomiting. She denies any fevers and states her bowel movements have been fairly normal with a little bit of diarrhea here and there. She has not noted any blood in her stool but states there was some black diarrhea about a month ago. She states she drinks wine on occasion but is not a regular alcohol consumer. She states her diet consists of mostly spicy food and lots of hot peppers. She tells me she has never had an upper endoscopy or a colonoscopy and that she still has her gallbladder. [facility] Surgical History H/O unilateral oophorectomy Family History Mother Diabetes Father Diabetes Social History Housing: House Alcohol intake: never Patient Tobacco Use Status: Never used Tobacco e-Cigarette/Vaping Use: Never Used Second Hand Smoke Exposure: No service: No Current occupational status: employed Cognitive needs: No Hearing needs: No Vision needs: No Review of Systems Const All systems reviewed & are unremarkable except as noted in HPI and below Physical Exam Vital Signs: Last Vital Signs Pulse 78 02/16/24 08:59 BP 130/82 02/16/24 08:59 Pulse Ox 98 02/16/24 08:59 Oxygen Delivery Method Room Air 02/16/24 08:59 Const General: cooperative, healthy appearing, comfortable, no acute distress and well developed Orientation/consciousness: patient oriented x3 Limitations: no limitations HEENT Head: Yes normal to inspection Ears: hearing grossly normal bilaterally General nose exam: Normal external nose present Face and sinus: Yes normal facial exam Eyes General: appearance normal, both eyes and all related structures Neck Neck: Yes normal visual inspection and Yes full ROM Resp Effort & Inspection: normal respiratory effort and able to speak in complete sentences GI Inspection: Yes normal to inspection Palpation (GI): Soft to palpation and Tenderness to palpation present (GI) in the epigastrum (slight); Avelar's sign negative Skin General skin exam: no rashes or lesions noted Neuro General: patient oriented x3 Extrem General: Yes normal to inspection Assessment & Plan Assessment & Plan (1) Abdominal pain in female: Code(s): R10.9 - Unspecified abdominal pain Plan: Vital signs are stable, patient well-appearing and physical exam was relatively benign. Based on HPI, likely GERD +/- an ulcer. Recommended patient follow up with her PCP to get a colonoscopy and ask for an upper endoscopy at the same time to rule out ulcer. In the meanwhile, she can try taking omeprazole twice a day for a week and then go down to regular once a day dosing. Can also add in Pepcid for further symptomatic relief. Plan See above Coding Level of Care Code Est Pt Level 3 (29079) Diagnoses Abdominal pain in female R10.9
[2024-02-16 08:59] VITALS: BP 130/82; PULSE 78; O2SAT 98
== END 2024-02-16 09:27 | disposition home or self-care (01) ==
PROVIDERS: PCP Internal Medicine; Visit Provider Physician Assistant
DX: R10.9 Unspecified abdominal pain (principal)

== ENCOUNTER → 2024-02-16 08:45 | Outpatient (BNVA) | payer OTHER, SELFPAY | PROVIDERS: PCP Internal Medicine; Visit Provider Physician Assistant | DX: R10.9 Unspecified abdominal pain (principal) | CPT/HCPCS: 99212 ==

== ENCOUNTER 2024-02-26 10:24 | Outpatient (AMB) | payer OTHER, SELFPAY ==
[2024-02-26 10:25] VITALS: BP 132/86; PULSE 80; O2SAT 97; BMI 41.3
--- NOTE | 2024-02-26 10:25 | A.OFFPC_ITS ---
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 Accompanied by: Self / Same As Patient Allergies docosanol [From Abreva] Allergy (Intermediate, Verified 02/26/24 10:25) Blister Medication List - Last Reconciled 02/26/24 by Issac Lazar MD albuterol sulfate 90 mcg/actuation (ProAir RespiClick) 2 inhalations inhalation Q4H PRN 30 days levothyroxine 125 mcg PO DAILY Tobacco use date assessed: 02/26/24 Dental Screening Dental Screen Date: 02/26/24 Did you have a dental visit in the last 12 months?: No Did you have a dental problem in the last 6 months where you did not have access to dental care?: No Was dental information given to patient?: Patient has dentist HPI Abdominal pain (pedi) HPI Details LUQ abd pain for a week; seen in er and walk in; given rx for a uti [facility] Surgical History H/O unilateral oophorectomy Family History Mother Diabetes Father Diabetes Social History Housing: House Alcohol intake: never Patient Tobacco Use Status: Never used Tobacco Tobacco use type: Cigarette e-Cigarette/Vaping Use: Never Used Second Hand Smoke Exposure: No service: No Current occupational status: employed Cognitive needs: No Hearing needs: No Vision needs: No Questionnaire PHQ-9 Over the last 2 weeks, how often have you been bothered by any of the following problems? 1. Little interest or pleasure in doing things: not at all 2. Feeling down, depressed, or hopeless: not at all 3. Trouble falling or staying asleep, or sleeping too much: not at all 4. Feeling tired or having little energy: not at all 5. Poor appetite or overeating: not at all 6. Feeling bad about yourself - or that you are a failure or have let yourself or your family down: not at all 7. Trouble concentrating on things, such as reading the newspaper or watching television: not at all 8. Moving or speaking so slowly that other people could have noticed. Or the opposite - being so fidgety or restless that you have been moving around a lot more than usual: not at all 9. Thoughts that you would be better off or of hurting yourself in some way: not at all Total score: 0 Depression Screening Interpretation: Negative Depression Screening Done: Yes Source: Developed by Drs. Jerardo Clay, Janet Olmos, Victor M Perez and colleagues, with an educational cayla from [employer]. Thrive Questionnaire Date Thrive assessed: 02/26/24 I am a: Patient What is your living situation today?: I have a steady place to live Within the past 12 months, did the food you bought not last and you didn't have the money to get more?: Never true Within the past 12 months, did you worry whether your food would run out before you got money to buy more?: Never true Do you have trouble paying for medicines?: No Do you have trouble getting transportation to medical appointments?: No Do you have trouble paying your heating and electricity bill?: No Do you have trouble taking care of your child, family member or friend?: No Do you have trouble with day-to-day activities such as bathing, preparing meals, shopping, managing finances, etc.?: No Are you currently unemployed and looking for a job?: No Are you interested in more education?: No THRIVE Score: 0 AUDIT C Alcohol Use Questionnaire (AUDIT-C) 1. How often do you have a drink containing alcohol?: Monthly or less 2. How many drinks containing alcohol do you have on a typical day when you are drinking?: 1 or 2 Total Score: 1 GUICHO-7 AMB Questionnaire GUICHO-7 Date GUICHO - 7 assessed: 02/26/24 Feeling nervous, anxious, or on edge: 0 = Not at all Not being able to stop or control worryin = Not at all Worrying too much about different things: 0 = Not at all Trouble relaxin = Not at all Being so restless that it is hard to sit still: 0 = Not at all Becoming easily annoyed or irritable: 0 = Not at all Feeling afraid as if something awful might happen: 0 = Not at all Total GUICHO-7 score (0-4 normal; 5-9 mild; 10-14 moderate; 15-21 severe): 0 Source: Developed by Drs. Jerardo Clay, Janet Olmos, Victor M Perez and colleagues, with an educational cayla from [employer]. Review of Systems Const Denies chills, Denies headache(s) and Denies weight loss ENT Denies headache(s) Card Denies chest pain, Denies syncope, Denies irregular heart rhythm and Denies dyspnea Resp Denies chest congestion, Denies cough and Denies dyspnea GI Denies nausea and Denies vomiting Musc Denies deformity and Denies joint swelling Neuro Denies syncope and Denies headache(s) Physical exam (Primary Care) Vital Signs: Last Vital Signs Pulse 80 02/26/24 10:25 BP 132/86 02/26/24 10:25 Pulse Ox 97 02/26/24 10:25 Oxygen Delivery Method Room Air 02/26/24 10:25 BMI result Body Mass Index 41.3 Tobacco/Smoking Status: Tobacco use Status Tobacco use date assessed 02/26/24 02/26/24 10:30 Patient Tobacco Use Status Never used Tobacco 02/26/24 10:30 Tobacco use type Cigarette 02/26/24 10:30 e-Cigarette/Vaping Use Never Used 02/26/24 10:30 PHQ-9: PHQ-9 Score PHQ-9: Total score 0 02/26/24 10:30 Depression Screening Interpretation: Negative Thrive Assessment: Date of Thrive Assessment Date Thrive assessed 02/26/24 02/26/24 10:30 Const General: cooperative, comfortable, no acute distress and alert Neck Neck: Yes no lymphadenopathy Thyroid: Thyroid normal Resp Effort & Inspection: normal respiratory effort Auscultation: clear to auscultation bilaterally Percussion: percussion normal Cardio Jugular venous distension: no JVD Palpation: normal PMI Rate: regular rate Rhythm: regular rhythm Heart sounds: S1 normal heart sound present and S2 normal heart sound present GI Inspection: Yes normal to inspection Palpation (GI): No hepatosplenomegaly present Skin General skin exam: no rashes or lesions noted Extrem General: Yes no clubbing, cyanosis or edema Coding Level of Care Code Est Pt Level 3 (91903) Diagnoses Abdominal pain R10.9 Assessment & Plan Assessment & Plan (1) Abdominal pain: Code(s): R10.9 - Unspecified abdominal pain Category: Medical Plan: rx and US Orders: Orders US abdomen complete Today R10.9 - Unspecified abdominal pain Medications: New ciprofloxacin HCl (Cipro) 250 mg PO BID 10 tabs 0RF tramadol 50 mg PO Q8H PRN 20 tabs 0RF pain
== END 2024-02-26 10:46 | disposition home or self-care (01) ==
LOC: HO.HMCH 10:25
PROVIDERS: PCP Internal Medicine; Visit Provider Internal Medicine
DX: R10.9 Unspecified abdominal pain (principal)

== ENCOUNTER → 2024-02-26 10:24 | Outpatient (BNVA) | payer OTHER, SELFPAY | PROVIDERS: PCP Internal Medicine; Visit Provider Internal Medicine | DX: R10.9 Unspecified abdominal pain (principal) | CPT/HCPCS: 96127; 99212 ==

== ENCOUNTER 2024-03-04 09:18 | Outpatient (AMB) | payer OTHER, SELFPAY ==
[2024-03-04 09:18] VITALS: BP 140/86; PULSE 75; O2SAT 99; BMI 42.0
--- NOTE | 2024-03-04 09:18 | A.OFFPC_ITS ---
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 Accompanied by: Self / Same As Patient Allergies docosanol [From Abreva] Allergy (Intermediate, Verified 03/04/24 09:19) Blister Medication List - Last Reconciled 03/05/24 by Issac Lazar MD albuterol sulfate 90 mcg/actuation (ProAir RespiClick) 2 inhalations inhalation Q4H PRN 30 days levothyroxine 125 mcg PO DAILY tramadol 50 mg PO Q8H PRN Tobacco use date assessed: 02/26/24 Dental Screening Dental Screen Date: 02/26/24 HPI Abdominal pain HPI Details right sided abd pain persists; having US next week; rx will dwnend on results [facility] Surgical History H/O unilateral oophorectomy Family History Mother Diabetes Father Diabetes Social History Housing: House Alcohol intake: never Patient Tobacco Use Status: Never used Tobacco Tobacco use type: Cigarette e-Cigarette/Vaping Use: Never Used Second Hand Smoke Exposure: No service: No Current occupational status: employed Cognitive needs: No Hearing needs: No Vision needs: No Questionnaire Thrive Questionnaire Date Thrive assessed: 02/26/24 GUICHO-7 AMB Questionnaire GUICHO-7 Date GUICHO - 7 assessed: 02/26/24 Source: Developed by Drs. Jerardo Clay, Janet Oloms, Victor M Perez and colleagues, with an educational cayla from [employer]. Review of Systems Const Denies chills, Denies headache(s) and Denies weight loss ENT Denies headache(s) Card Denies chest pain, Denies syncope, Denies irregular heart rhythm and Denies dyspnea Resp Denies chest congestion, Denies cough and Denies dyspnea GI Denies change in stool character, Denies nausea and Denies vomiting Musc Denies deformity and Denies joint swelling Neuro Denies syncope and Denies headache(s) Physical exam (Primary Care) Vital Signs: Last Vital Signs Pulse 75 03/04/24 09:18 BP 140/86 H 03/04/24 09:18 Pulse Ox 99 03/04/24 09:18 Oxygen Delivery Method Room Air 03/04/24 09:18 BMI result Body Mass Index 42.0 Tobacco/Smoking Status: Tobacco use Status Tobacco use date assessed 02/26/24 03/04/24 09:21 Patient Tobacco Use Status Never used Tobacco 03/04/24 09:21 Tobacco use type Cigarette 03/04/24 09:21 e-Cigarette/Vaping Use Never Used 03/04/24 09:21 Thrive Assessment: Date of Thrive Assessment Date Thrive assessed 02/26/24 03/04/24 09:21 Const General: cooperative, comfortable, no acute distress and alert Neck Neck: Yes no lymphadenopathy Thyroid: Thyroid normal Resp Effort & Inspection: normal respiratory effort Auscultation: clear to auscultation bilaterally Percussion: percussion normal Cardio Jugular venous distension: no JVD Palpation: normal PMI Rate: regular rate Rhythm: regular rhythm Heart sounds: S1 normal heart sound present and S2 normal heart sound present GI Inspection: Yes normal to inspection Palpation (GI): No hepatosplenomegaly present Skin General skin exam: no rashes or lesions noted Extrem General: Yes no clubbing, cyanosis or edema Coding Level of Care Code Est Pt Level 3 (67017) Diagnoses Abdominal pain R10.9 Assessment & Plan Assessment & Plan (1) Abdominal pain: Code(s): R10.9 - Unspecified abdominal pain Category: Medical Plan: await US
== END 2024-03-04 09:33 | disposition home or self-care (01) ==
PROVIDERS: PCP Internal Medicine; Visit Provider Internal Medicine
DX: R10.9 Unspecified abdominal pain (principal)

== ENCOUNTER → 2024-03-04 09:18 | Outpatient (BNVA) | payer OTHER, SELFPAY | PROVIDERS: PCP Internal Medicine; Visit Provider Internal Medicine | DX: R10.9 Unspecified abdominal pain (principal) | CPT/HCPCS: 99212 ==

== ENCOUNTER 2024-03-10 07:40 | Outpatient (REF) | payer OTHER, SELFPAY ==
--- NOTE | ~2024-03-10 | US_ITS ---
EXAMINATION: US ABDOMEN COMPLETE CLINICAL INFORMATION: Unspecified abdominal pain. COMPARISON: Renal ultrasound 11/29/2010. TECHNIQUE: Real-time imaging of the abdominal viscera. Color Doppler exam utilized. FINDINGS: PANCREAS: Normal. ABDOMINAL AORTA: The proximal, mid, and distal segments are normal in caliber. INFERIOR VENA CAVA: Visualized portions are normal. LIVER: The liver is normal in size. The liver contour is normal. Slight increased echogenicity of liver parenchyma suggesting fatty change. No focal hepatic lesion. There is no intrahepatic biliary duct dilatation seen. GALLBLADDER: Normal. The gallbladder is physiologically distended without evidence of stones, sludge, polyps, wall thickening or pericholecystic fluid. COMMON BILE DUCT: Normal in caliber measuring 0.3 cm in diameter. RIGHT KIDNEY: Normal. No hydronephrosis. No renal calculi or focal parenchymal lesions. The kidney measures 8.8 cm in maximum dimension. LEFT KIDNEY: Normal. No hydronephrosis. No renal calculi or focal parenchymal lesions. The kidney measures 9.8 cm in maximum dimension. SPLEEN: Normal. The spleen measures 11.1 cm in maximum dimension. FREE FLUID: None. US/US abdomen complete IMPRESSION: 1. No acute abnormality. 2. Mild fatty change of liver. Electronically signed by: Jacobo Bañuelos MD 03/31/2024 03:09 PM BOBBY
== END 2024-03-10 07:41 | disposition home or self-care (01) ==
LOC: HO.US 07:40
PROVIDERS: PCP Internal Medicine; Visit Provider Internal Medicine
DX: R10.9 Unspecified abdominal pain (principal)
CPT/HCPCS: 76700

== ENCOUNTER 2024-03-29 09:12 | Outpatient (AMB) | payer OTHER, SELFPAY ==
[2024-03-29 09:15] VITALS: BP 122/70; PULSE 88; TEMP 36.9; O2SAT 94; BMI 40.9
--- NOTE | 2024-03-29 09:15 | AM.OFFWIN_ITS ---
Intake Vital Signs 03/29/24 09:15 Height 5 ft 3 in Weight 231 lb BMI 40.9 BP 122/70 Blood Pressure Location Lt brachial Position Sitting Pulse 88 Pulse Source Pulse Oximeter Temp 98.4 F Temp Source Oral Pulse Oximetry (%) 94 Oxygen Delivery Method Room Air Intake Visit Reasons: EP asthma, fever, headache, chestpain Intake Note: Patient here for chest pain from coughing, fever, cough, slight congestion and headaches that have been present for about 4 days. Patient Tobacco Use Status: Never used Tobacco Allergies docosanol [From Abreva] Allergy (Intermediate, Verified 03/29/24 09:19) Blister Do you need a note to return to daycare/school/sports/work: Yes HPI EP asthma, fever, headache, chestpain HPI Details This note is constructed using voice recognition software. While every effort has been made to ensure accuracy, feedlot manager errors may have been included. The patient is a 58 year old female who presents to the clinic today with cough, fever, headache, chest wall pain with cough for the past 4 days. 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 She notes that she started with cough, the cough has become more regular and consistent, and led to the muscles in her chest hurting when she coughs. She also notes that she is having to use her albuterol inhaler more. She is having frontal headache, low-grade fever. She is taking Tylenol for the headache and fever only. She has not yet tested for COVID at home. She is wearing a mask when she is around sick people. [facility] Surgical History H/O unilateral oophorectomy Family History Mother Diabetes Father Diabetes Social History Housing: House Alcohol intake: never Patient Tobacco Use Status: Never used Tobacco Tobacco use type: Cigarette e-Cigarette/Vaping Use: Never Used Second Hand Smoke Exposure: No service: No Current occupational status: employed Cognitive needs: No Hearing needs: No Vision needs: No Review of Systems Const All systems reviewed & are unremarkable except as noted in HPI and below Physical Exam Vital Signs: Last Vital Signs Temp 98.4 F 03/29/24 09:15 Pulse 88 03/29/24 09:15 BP 122/70 03/29/24 09:15 Pulse Ox 94 03/29/24 09:15 Oxygen Delivery Method Room Air 03/29/24 09:15 BMI result Body Mass Index 40.9 Const General: cooperative, healthy appearing, comfortable and no acute distress Orientation/consciousness: patient oriented x3 Limitations: no limitations HEENT Head: Yes normal to inspection Ears: hearing grossly normal bilaterally, external ears normal and TM's normal bilaterally General nose exam: Normal external nose present, Normal nares present and No nasal discharge present Face and sinus: Yes normal facial exam and Yes sinuses nontender Mouth: Normal oral and palatal mucosa present and moist mucous membranes Throat: Yes tonsils normal, Yes uvula midline and Yes posterior oropharynx abnormal (Erythema) Eyes General: appearance normal, both eyes and all related structures Neck Neck: Yes normal visual inspection Resp Effort & Inspection: normal respiratory effort, able to speak in complete sentences, Actively coughing, no respiratory distress, not tachypneic, no tripod positioning and no use of accessory muscles Auscultation: clear to auscultation bilaterally and wheezes (clear with cough) Cardio Jugular venous distension: no JVD Rate: regular rate Rhythm: regular rhythm Heart sounds: S1 normal heart sound present, S2 normal heart sound present, no click, no gallops, no murmurs and no rubs Skin General skin exam: no rashes or lesions noted, elasticity normal and turgor normal Neuro General: patient oriented x3 Extrem General: Yes normal to inspection and Yes no clubbing, cyanosis or edema Assessment & Plan Assessment & Plan (1) URI (upper respiratory infection): Code(s): J06.9 - Acute upper respiratory infection, unspecified Qualifiers: URI type: unspecified URI Qualified Code(s): J06.9 - Acute upper respiratory infection, unspecified Plan: Viral swab obtained to rule out Covid, Influenza, and RSV based on symptoms. Advised mask wearing while symptomatic and quarantine per current CDC guidelines. Reviewed at home support methods including hydration, humidification, vix vapor rub, sinus rinse, and otc treatment options. Discussed treatment with antiviral therapy for covid with paxlovid and with Tamiflu for influenza, including appropriate use and side effects, and need to start medication within 5 day of symptom onset, preferably within 48 hours of symptom onset. Patient wishes to decline antiviral therapy. Advised follow up with worsening symptoms such as dyspnea at rest, which would require emergent evaluation. (2) Asthma exacerbation: Code(s): J45.901 - Unspecified asthma with (acute) exacerbation Qualifiers: Asthma severity: mild Asthma persistence: intermittent Qualified Code(s): J45.21 - Mild intermittent asthma with (acute) exacerbation Plan: Advised patient to continue with albuterol inhaler use as needed. We will add prednisone with taper for symptomatic management. Advised patient to follow up with any worsening shortness of breath, fever, or decreased energy for re- evaluation. Plan See above for full details and plan. Orders: Orders SARS-CoV2/FLU/RSV Today J06.9 - Acute upper respiratory infection, unspecified Medications: New prednisone 5 tablets daily for 2 days, then 4 tablets daily for 2 days, then 3 tablets daily for 2 days, then 2 tablets daily for 2 days, then 1 tablet daily for 2 days. 10 mg PO DIRECTED 30 tabs 0RF Coding Level of Care Code Est Pt Level 3 (09464) Diagnoses Upper respiratory tract infection, unspecified type J06.9 URI type: unspecified URI Mild intermittent asthma with exacerbation J45.21 Asthma severity: mild Asthma persistence: intermittent
== END 2024-03-29 09:42 | disposition home or self-care (01) ==
PROVIDERS: PCP Internal Medicine; Visit Provider Registered Nurse
DX: J06.9 Acute upper respiratory infection, unspecified (principal); J45.21 Mild intermittent asthma with (acute) exacerbation

== ENCOUNTER 2024-03-29 09:12 | Outpatient (REF) | payer OTHER, SELFPAY ==
[2024-03-29 13:59] LABS: Influenza A PCR POSITIVE (Negative); Influenza B PCR NEGATIVE (Negative); Resp Syncy Virus RNA Qual PCR NEGATIVE (Negative); SARS COV2 PCR INHOUSE NEGATIVE (Negative)
== END 2024-03-29 09:13 | disposition home or self-care (01) ==
LOC: HO.LAB 09:12
PROVIDERS: PCP Internal Medicine; Visit Provider Registered Nurse
DX: J06.9 Acute upper respiratory infection, unspecified (principal); J45.901 Unspecified asthma with (acute) exacerbation
CPT/HCPCS: 0241U; 99212

== ENCOUNTER 2024-09-06 15:01 | Outpatient (AMB) | payer OTHER, SELFPAY ==
--- NOTE | 2024-09-06 15:22 | A.OFFPC_ITS ---
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 Claims Analyst: Not Required per policy Accompanied by: Self / Same As Patient Allergies docosanol [From Abreva] Allergy (Intermediate, Verified 09/06/24 15:53) Blister Medication List - Last Reconciled 09/06/24 by Emily Adkins PA-C albuterol sulfate 90 mcg/actuation (ProAir RespiClick) 2 inhalations inhalation Q4H PRN 30 days levothyroxine 125 mcg PO DAILY Tobacco use date assessed: 09/06/24 Dental Screening Dental Screen Date: 09/06/24 Did you have a dental visit in the last 12 months?: No Did you have a dental problem in the last 6 months where you did not have access to dental care?: No Was dental information given to patient?: Patient declined HPI IRENE DR Lazar HPI Details 59-year-old female with past medical his tory of impetigo last seen by Dr. Lazar 02/2024 coming in for transfer care. Presenting with concerns of lymphedema. She reports chronic lower extremity swelling, predominantly affecting the left side, without relief over several years. She was previously being seen by vascular and advised compression dressings but could not keep up with the dressing changes and found this difficult. She has not tried compression socks. Standing at her job has intensified discomfort and an inability to manage symptoms. She had a note from her last provider that allowed her to work 4 hours at a time and found this schedule more appropriate for her. She has been on levothyroxine for hypothyroidism but previously achieved better weight control with Synthroid. [facility] Surgical History H/O unilateral oophorectomy Family History Mother Diabetes Father Diabetes Social History Housing: House Alcohol intake: current Alcohol intake frequency: holidays/special occasions only Alcohol type: wine Patient Tobacco Use Status: Never used Tobacco Tobacco use type: Cigarette e-Cigarette/Vaping Use: Never Used Second Hand Smoke Exposure: No service: No Current occupational status: employed Cognitive needs: No Hearing needs: No Vision needs: No Questionnaire PHQ-9 Over the last 2 weeks, how often have you been bothered by any of the following problems? 1. Little interest or pleasure in doing things: not at all 2. Feeling down, depressed, or hopeless: not at all 3. Trouble falling or staying asleep, or sleeping too much: several days 4. Feeling tired or having little energy: several days 5. Poor appetite or overeating: several days 6. Feeling bad about yourself - or that you are a failure or have let yourself or your family down: not at all 7. Trouble concentrating on things, such as reading the newspaper or watching television: not at all 8. Moving or speaking so slowly that other people could have noticed. Or the opposite - being so fidgety or restless that you have been moving around a lot more than usual: not at all 9. Thoughts that you would be better off or of hurting yourself in some way: not at all Total score: 3 Depression Screening Interpretation: Negative Depression Screening Done: Yes Source: Developed by Drs. Jerardo Clay, Janet Olmos, Victor M Perez and colleagues, with an educational cayla from [email or web address]. Thrive Questionnaire Date Thrive assessed: 09/06/24 I am a: Patient What is your living situation today?: I have a steady place to live Within the past 12 months, did the food you bought not last and you didn't have the money to get more?: Never true Within the past 12 months, did you worry whether your food would run out before you got money to buy more?: Never true Do you have trouble paying for medicines?: No Do you have trouble getting transportation to medical appointments?: No Do you have trouble paying your heating and electricity bill?: Yes Do you have trouble taking care of your child, family member or friend?: No Do you have trouble with day-to-day activities such as bathing, preparing meals, shopping, managing finances, etc.?: No Are you currently unemployed and looking for a job?: No Are you interested in more education?: No Please select the resources that you would like help with: None Currently or been in a relationship where the following occur: No concerns reported THRIVE Score: 1 AUDIT C Alcohol Use Questionnaire (AUDIT-C) 1. How often do you have a drink containing alcohol?: Monthly or less 2. How many drinks containing alcohol do you have on a typical day when you are drinking?: 1 or 2 3. How often do you have six or more drinks on one occasion?: Daily or almost daily Total Score: 5 GUICHO-7 AMB Questionnaire GUICHO-7 Date GUICHO - 7 assessed: 09/06/24 Feeling nervous, anxious, or on edge: 0 = Not at all Not being able to stop or control worryin = Not at all Worrying too much about different things: 0 = Not at all Trouble relaxin = Several days Being so restless that it is hard to sit still: 1 = Several days Becoming easily annoyed or irritable: 0 = Not at all Feeling afraid as if something awful might happen: 0 = Not at all Total GUICHO-7 score (0-4 normal; 5-9 mild; 10-14 moderate; 15-21 severe): 2 Source: Developed by Drs. Jerardo Clay, Janet Olmos, Victor M Perez and colleagues, with an educational cayla from [email or web address]. GUICHO-7 Assessment Billing GUICHO-7 Assessment Tool: GUICHO-7 Assessment 62326 Review of Systems Const Denies body aches, Denies chills, Denies fever(s), Denies headache(s) and Denies poor appetite Eyes Reports no additional complaints ENT Denies dizziness and Denies headache(s) Card Denies chest pain, Denies lightheadedness and Denies dyspnea Resp Denies dyspnea GI Denies abdominal pain, Denies nausea and Denies vomiting Reports no additional complaints Musc Reports as per HPI and Denies abnormal gait Skin/Breast Reports system reviewed and no additional complaints, except as documented Neuro Denies abnormal gait, Denies dizziness and Denies headache(s) Psych Reports no additional complaints Physical exam (Primary Care) Vital Signs: Last Vital Signs Temp 96.9 F 09/06/24 15:24 Pulse 83 09/06/24 15:24 BP 142/70 H 09/06/24 15:24 Pulse Ox 100 09/06/24 15:24 Oxygen Delivery Method Room Air 09/06/24 15:24 BMI result Body Mass Index 41.5 Tobacco/Smoking Status: Tobacco use Status Tobacco use date assessed 09/06/24 09/06/24 15:28 Patient Tobacco Use Status Never used Tobacco 09/06/24 15:28 Tobacco use type Cigarette 09/06/24 15:28 e-Cigarette/Vaping Use Never Used 09/06/24 15:28 PHQ-9: PHQ-9 Score PHQ-9: Total score 3 09/06/24 16:00 Depression Screening Interpretation: Negative Thrive Assessment: Date of Thrive Assessment Date Thrive assessed 09/06/24 09/06/24 15:28 Currently or been in a relationship where the following occur: No concerns reported Const General: cooperative, healthy appearing, comfortable and no acute distress Orientation/consciousness: patient oriented x3 HENMT Head: Yes normocephalic Ears: hearing grossly normal bilaterally General nose exam: Normal external nose present Eyes General: appearance normal, both eyes and all related structures Conjunctivae: conjunctivae normal Neck Neck: Yes full ROM and Yes no lymphadenopathy Resp Effort & Inspection: normal respiratory effort Auscultation: clear to auscultation bilaterally, no crackles, no rales, no rhonchi and no wheezes Cardio Rate: regular rate Rhythm: regular rhythm Skin General skin exam: no rashes or lesions noted Neuro General: patient oriented x3 Gait exam (Neuro): Normal gait present Extrem General: Yes normal to inspection, Yes full ROM and Yes edema (jacey 1+ L > R) Psych Affect: normal affect Attitude: cooperative Insight: Good insight present (Psych) Judgement: Good judgement present (Psych) Coding Level of Care Code Est Pt Level 4 (86428) Diagnoses Hypothyroid E03.9 Lower extremity edema R60.0 Fatty liver K76.0 Screening for diabetes mellitus Z13.1 Screening for hypercholesterolemia Z13.220 Additional Codes GUICHO-7 Assessment Billing - GUICHO-7 Assessment Tool: GUICHO-7 Assessment 89791 ([id number]) Assessment & Plan Assessment & Plan (1) Hypothyroid: Code(s): E03.9 - Hypothyroidism, unspecified Category: Medical Plan: Patient is currently on levothyroxine 125 mcg she is due for blood work plan to send Synthroid after review. (2) Lower extremity edema: Code(s): R60.0 - Localized edema Category: Medical Plan: Patient does have chronic asymmetrical lower extremity edema. She has been seen by vascular in the past and compression dressings were used. There is very mild difference but right is greater than left in terms of edema. No calf tenderness, swelling, warmth and no overlying erythema or skin changes. Low suspicion for DVT at this time as symptoms have not changed or worsened. Plan to refer to vascular surgery at this time for further evaluation and treatment. Advised patient to use compression stockings, elevate when possible and activity as tolerated. Patient was provided with a work restriction note for 2 months to avoid working over 4 hours at the time and this will be re-evaluated after vascular has been consulted. (3) Fatty liver: Code(s): K76.0 - Fatty (change of) liver, not elsewhere classified Category: Medical Plan: Healthy diet and regular exercise is encouraged. (4) Screening for diabetes mellitus: Code(s): Z13.1 - Encounter for screening for diabetes mellitus Category: Medical Plan: Ordered for blood work (5) Screening for hypercholesterolemia: Code(s): Z13.220 - Encounter for screening for lipoid disorders Category: Medical Plan: Ordered for blood work Plan The primary focus involves managing lymphedema and optimizing thyroid function. Initiation of compression stockings along with a referral to a vascular specialist were made. Thyroid function tests were ordered to reassess current therapy and enhance weight loss strategies. Regular leg exercises and elevation were recommended. For health maintenance, referrals for a mammogram and stool- based colon cancer screening test were discussed and ordered. This note was constructed using voice recognition software. While every effort has been made to ensure accuracy and thermal surfacing machine operator, still areas may have been included sometimes these areas may affect the content or meeting of the given symptoms. Total time spent caring for the patient today was 30 minutes. This includes time spent before the visit reviewing the chart, time spent during the visit, and time spent after the visit and documentation. Patient was informed and verbally consented to the use of an ambient scribe for clinic note documentation during this visit. Orders: Orders TSH reflex Free T4 09/06/24 E03.9 - Hypothyroidism, unspecified, Z00.00 - Encounter for general adult medical examination without abnormal findings Free T4 (Free Thyroxine) 09/06/24 E03.9 - Hypothyroidism, unspecified, Z00.00 - Encounter for general adult medical examination without abnormal findings Lipid Panel 09/06/24 Z13.220 - Encounter for screening for lipoid disorders Hemoglobin A1c 09/06/24 Z13.1 - Encounter for screening for diabetes mellitus MM tomosynthesis screening BI 09/06/24 Z12.31 - Encounter for screening mammogram for malignant neoplasm of breast Vitamin B12 and Folate 09/06/24 R60.0 - Localized edema, Z00.00 - Encounter for general adult medical examination without abnormal findings Vitamin D 25-OH Total 09/06/24 R60.0 - Localized edema, Z00.00 - Encounter for general adult medical examination without abnormal findings Comprehensive Met. Panel 09/06/24 R60.0 - Localized edema, Z00.00 - Encounter for general adult medical examination without abnormal findings Complete Blood Count Auto Diff 09/06/24 R60.0 - Localized edema, Z00.00 - Encounter for general adult medical examination without abnormal findings B Type Natriuretic Peptide Today R60.0 - Localized edema Referrals Vascular Surgery Referral R60.0 - Localized edema Cologuard Test Z12.11 - Encounter for screening for malignant neoplasm of colon, Z12.12 - Encounter for screening for malignant neoplasm of rectum Medications: New compression socks, x-large As directed: 15-20mmHg 2 ea 0RF compression socks, x-large As directed: 15-20mmHg 2 ea 0RF
[2024-09-06 15:24] VITALS: BP 142/70; PULSE 83; TEMP 36.1; O2SAT 100; BMI 41.5
== END 2024-09-06 16:14 | disposition home or self-care (01) ==
DX: E03.9 Hypothyroidism, unspecified (principal); R60.0 Localized edema; K76.0 Fatty (change of) liver, not elsewhere classified; Z13.1 Encounter for screening for diabetes mellitus; Z13.220 Encounter for screening for lipoid disorders

== ENCOUNTER → 2024-09-06 15:01 | Outpatient (BNVA) | payer OTHER, SELFPAY | PROVIDERS: PCP Internal Medicine | DX: E03.9 Hypothyroidism, unspecified (principal); R60.0 Localized edema; K76.0 Fatty (change of) liver, not elsewhere classified; Z79.899 Other long term (current) drug therapy | CPT/HCPCS: 96127; 99212 ==

== ENCOUNTER 2024-09-21 07:13 | Outpatient (REF) | payer OTHER, SELFPAY ==
[2024-09-21 07:26] LABS: MANUAL DIFF FLAG NO
[2024-09-21 07:55] LABS: Estimated Average Glucose 103 mg/dL; Hemoglobin A1c % 5.2 % (<6.0)
[2024-09-21 08:01] LABS: Basophils Absolute Auto 0.1 X10*3/uL (0.0-0.2); Eosinophils Absolute Auto 0.2 X10*3/uL (0.0-0.4); Eosinophils Percent Auto 4.2 % (0-4); Hematocrit 37.3 % (37.0-47.0); Hemoglobin 12.2 g/dl (12.0-16.0); Imm Gran Abs Auto 0.01 X10*3/uL (0.00-0.03); Imm Gran Pct Auto 0.2 % (0.0-0.4); Lymphocytes Absolute Auto 1.5 X10*3/uL (1.2-4.9); Lymphocytes Percent Auto 28.1 % (20-40); Mean Corpuscular HGB Conc 32.7 g/dl (31.0-35.0); Mean Corpuscular Hemoglobin 29.8 pg (27.0-33.0); Mean Platelet Volume 10.3 fL (9.4-12.3); Monocytes Absolute Auto 0.3 X10*3/uL (0.1-1.2); Monocytes Percent Auto 6.3 % (2-11); Neutrophils Absolute Auto 3.2 x10*3/uL (2.0-8.3); Neutrophils Percent Auto 60.2 % (45-73); Platelet Count 286 X10*3/uL (160-400); Red Cell Distribution Width 13.4 % (11.0-16.0); White Blood Count 5.2 X10*3/uL (4.8-10.8)
[2024-09-21 08:21] LABS: Alanine Aminotransferase 13 U/L (0-31); Alkaline Phosphatase 78 U/L (39-117); Anion Gap 9 (12-20); Aspartate Amino Transferase 20 U/L (5-31); Bilirubin Total 0.4 mg/dL (0.0-1.0); Blood Urea Nitrogen 14 mg/dL (9-16); Calcium 9.1 mg/dL (8.4-10.2); Carbon Dioxide 29 mmol/L (22-29); Chloride 110 mmol/L (96-108); Cholesterol 189 mg/dL (<200); Estimated Glomerular Filt Rate > 60; Glucose Random 89 mg/dL (60-115); HDL Cholesterol 66 mg/dL (>40); LDL Cholesterol Calculated 102 mg/dL (<100); Potassium 4.3 mmol/L (3.3-5.1); Sodium 144 mmol/L (135-145); Total Protein 6.8 g/dL (6.5-8.0); Triglycerides 105 mg/dL (<150)
[2024-09-21 08:41] LABS: Free T4 (Free Thyroxine) 0.96 ng/dL (0.71-1.85); TSH reflex Free T4 6.45 uIU/mL (0.32-4.0); Vitamin D 25-OH Total 29.1 ng/mL (>30)
[2024-09-21 08:45] LABS: Folate 8.5 ng/mL (> or = 4.0); Vitamin B12 239 pg/mL (200-900)
[2024-09-21 08:46] LABS: B Type Natriuretic Peptide 22 pg/mL (<100)
== END 2024-09-21 07:14 | disposition home or self-care (01) ==
LOC: HO.LAB 07:13
DX: Z00.00 Encounter for general adult medical examination without abnormal findings (principal); R60.0 Localized edema; Z13.1 Encounter for screening for diabetes mellitus; E03.9 Hypothyroidism, unspecified; Z13.220 Encounter for screening for lipoid disorders
CPT/HCPCS: 36415; 80053; 80061; 82306; 82607; 82746; 83036; 83880; 84439; 84443; 85025

== ENCOUNTER 2024-10-05 13:56 | Outpatient (AMB) | payer OTHER, SELFPAY ==
--- NOTE | 2024-10-05 14:04 | A.OFFVIS_ITS ---
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 Left leg is swollen and painful. Noticeably larger than the right.Patient works on her feet. Legs are restless at night. 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 Complaints include discomfort/pain and swelling of lower extremities with some cramping, fatigue, and heaviness of the lower extremities. It has been affecting their daily activities including working (she is only able to work 4h at a time), standing, and physical activity. It is noted more so in the left leg, but the right leg is affected as well. She states she has been dealing with this for years, but it is getting worse. She has been seen before and had lymphedema wraps, which she states did not work. She has not been tested for venous insufficiency yet. She denies any lymphorrhea currently, but states she has had it in the past. She is not a diabetic and is a nonsmoker. Patient denies any previous venous surgery or injections. Patient denies any history of DVT/ PE. Patient denies any history of phlebitis. Trial of compression includes - lymphedema wraps, compression (she is unable to find socks that fit), and edema. They now present for vascular evaluation regarding their varicose veins. [facility] Surgical History H/O unilateral oophorectomy Family History Mother Diabetes Father Diabetes Social History Housing: House Alcohol intake: current Alcohol intake frequency: holidays/special occasions only Alcohol type: wine Patient Tobacco Use Status: Never used Tobacco Tobacco use type: Cigarette e-Cigarette/Vaping Use: Never Used Second Hand Smoke Exposure: No service: No Current occupational status: employed Cognitive needs: No Hearing needs: No Vision needs: No Review of Systems Const Reports as per HPI and Denies weakness ENT Reports Normal hearing present and Denies dizziness Card Reports as per HPI, Denies chest pain, Denies chest pain at rest, Denies chest pain with activity, Denies dyspnea and Denies dyspnea on exertion Resp Reports as per HPI, Denies cough, Denies dyspnea and Denies dyspnea on exertion GI Reports as per HPI, Denies abdominal pain, Denies nausea and Denies vomiting Musc Denies numbness Skin/Breast Reports as per HPI, Denies erythema and Denies wounds Neuro Reports Normal hearing present, Denies dizziness, Denies numbness, Denies Sensory deficit (Neuro) and Denies weakness Psych Reports no additional complaints Endo Reports no additional complaints Physical Exam Const General: healthy appearing and no acute distress Orientation/consciousness: patient oriented x3 HEENT Head: Yes normal to inspection Ears: hearing grossly normal bilaterally Mouth: Normal oral and palatal mucosa present Resp Effort & Inspection: normal respiratory effort and able to speak in complete sentences Auscultation: clear to auscultation bilaterally Cardio Jugular venous distension: no JVD Rate: regular rate Rhythm: regular rhythm Heart sounds: S1 normal heart sound present and S2 normal heart sound present Bruits: no abdominal aortic bruits, no carotid bruits, no femoral bruits and no renal bruits Peripheral pulses: Peripheral pulses 2+ throughout GI Inspection: Yes normal to inspection Palpation (GI): No Abdominal aortic bruit present Skin General skin exam: no rashes or lesions noted Wounds: no wounds Hair: normal Neuro General: patient oriented x3 Cranial nerves: Yes Normal hearing present Cognition (Neuro): normal cognition Gait exam (Neuro): Normal gait present Motor exam (neuro): 5/5 motor strength present throughout Sensory Exam: No Sensory deficit (Neuro) Extrem Other: Left lower extremity: +3 pitting edema. Discoloration noted around the ankles. No lymphorrhea noted. Faint but palpable DP pulses; difficult to find with edema. Right lower extremity: +2/3 pitting edema. Discoloration noted around the ankles. No lymphorrhea noted. Faint but palpable DP pulses; difficult to find with edema. CEAP: C - 4 E - primary A - superficial P - reflux General: Yes normal to inspection, Yes full ROM, Yes capillary refill normal and Yes normal gait Assessment & Plan Assessment & Plan (1) Varicose veins of both lower extremities with inflammation: Code(s): I83.11 - Varicose veins of right lower extremity with inflammation; I83.12 - Varicose veins of left lower extremity with inflammation Category: Medical Plan: Zaira is presenting today on a referral from her PCP for ongoing and worsening bilateral lower extremity swelling and discomfort, L slightly greater than R. She does have a hx of lymphedema and this is likely the issue she is continuing with; however, she has not been ruled out for venous insufficiency. In short, the patient has evidence of venous insufficiency. I have discussed the pathophysiology with the patient. In addition I have provided informational material regarding venous disease to the patient. We have discussed conservative measures including compression, elevation, and exercise. She has tried compression socks in the past, but are unable to find any that are large enough to fit her legs. I have taken the liberty of ordering venous insufficiency testing with the patient. They will follow up with me after testing. The patient had an opportunity to ask questions regarding the treatment plan. All questions were answered. Imaging studies, laboratory studies and physical exam results were discussed and reviewed in detail. No major barriers to understanding were identified. The patient expressed understanding and agreement with the above treatment plan. The patient is aware they should contact our office by phone for worsening of the current condition or the appearance of new symptoms. Thank you for allowing me to participate in the vascular care of this patient. If you have any questions or concerns regarding the treatment for the above condition please do not hesitate to contact me. The office telephone contact is [phone]. This note is constructed using voice recognition software. While every effort has been made to ensure accuracy, experimental rocketsled mechanic errors may have been included. Thank you for allowing me to participate in the care of your patient. Yours sincerely, IDALIA Joya Orders: Orders US venous duplex LE BI 1 Week I83.11 - Varicose veins of right lower extremity with inflammation, I83.12 - Varicose veins of left lower extremity with inflammation Medications: Discontinued 2 levothyroxine Discontinued Reason: Patient no longer taking 125 mcg PO DAILY 90 tabs 1RF levothyroxine Discontinued Reason: Patient no longer taking 137 mcg PO DAILY 30 caps 1RF Coding Level of Care Code New Pt Level 4 (92925) Diagnoses Varicose veins of both lower extremities with inflammation I83.11; I83.12
== END 2024-10-05 14:16 | disposition home or self-care (01) ==
LOC: HO.HVS 13:57
PROVIDERS: Visit Provider Physician Assistant Surgical
DX: I83.11 Varicose veins of right lower extremity with inflammation (principal); I83.12 Varicose veins of left lower extremity with inflammation
CPT/HCPCS: 99204

== ENCOUNTER → 2024-10-05 13:56 | Outpatient (BNVA) | payer OTHER, SELFPAY | PROVIDERS: Visit Provider Physician Assistant Surgical | DX: I83.11 Varicose veins of right lower extremity with inflammation (principal); I83.12 Varicose veins of left lower extremity with inflammation | CPT/HCPCS: 99202 ==

== ENCOUNTER 2024-10-20 04:52 | Emergency (ER) | payer OTHER, SELFPAY ==
--- NOTE | ~2024-10-20 | CT_ITS ---
CLINICAL HISTORY: left flank pain CT abdomen and pelvis without contrast Comparison: None provided Findings: The lung bases are clear. The unenhanced liver, gallbladder, spleen, adrenal glands and pancreas are unremarkable. No urinary calculus or obstructive uropathy. Several calcifications are present within the pelvis, none of which appear definitively intraureteral. Uterus and adnexa are unremarkable. Moderate fecal retention within the colon. No bowel obstruction. No acute osseous finding. Impression: No urinary calculus or obstructive uropathy. Moderate fecal retention throughout the colon. This document has been electronically signed by: Meliton Juarez MD on 10/20/2024 09:38:56
[2024-10-20 04:56] VITALS: BP 150/90; PULSE 99; RESP 20; TEMP 36.1; O2SAT 99; BMI 41.4
[2024-10-20 05:37] VITALS: BP 119/60; PULSE 80; RESP 18; O2SAT 98
[2024-10-20 06:39] VITALS: BP 118/69; PULSE 72; RESP 18; TEMP 36.5; O2SAT 95
--- NOTE | 2024-10-20 08:07 | ED.BACK ---
HPI - Back Pain/Injury General Chief Complaint: Back Pain/Injury Stated Complaint: pinched nerve Time Seen by Provider: 10/20/24 07:27 History of Present Illness HPI Narrative: Patient is a 59-year-old female presented today with having pain to the left flank area radiating down to her legs. Patient claims she works in a [employer] when she lifted some water and turn she started having the pain. There is no fever no chills there is no bowel urinary incontinence. There is no focal weakness. Patient claims the pain was very sharp. 59 years old no history of the same pain in the past no history of kidney stones in the past. Related Data Previous Rx's ?Medication ?Instructions ?Recorded albuterol sulfate 90 mcg/actuation 2 inh inhalation Q4H PRN shortness 03/02/21 breath activated powder inhaler of breath or wheezing 30 days #1 ea (ProAir RespiClick) compression socks, x-large #2 ea 09/06/24 levothyroxine 137 mcg tablet 137 mcg PO DAILY #30 tabs 10/05/24 cefuroxime axetil 500 mg tablet 500 mg PO BID 7 days #14 tabs 10/20/24 cyclobenzaprine 10 mg tablet 10 mg PO TID PRN pain #14 tabs 10/20/24 ibuprofen 400 mg tablet 400 mg PO Q6H PRN pain #20 tabs 10/20/24 Allergies Allergy/AdvReac Type Severity Reaction Status Date / Time docosanol (From Abreva) Allergy Intermediate Blister Verified 10/20/24 04:58 Review of Systems Review of Systems: Positive back pain Yes all other systems are reviewed and are negative [facility] Past Medical History Attestation statement: The following information was validated with the patient. Surgical History H/O unilateral oophorectomy Family History Family History Mother Diabetes Father Diabetes Social History Social History Housing: House Alcohol intake: current Alcohol intake frequency: holidays/special occasions only Alcohol type: wine Patient Tobacco Use Status: Never used Tobacco Tobacco use type: Cigarette Smoked in Last 30 Days: No e-Cigarette/Vaping Use: Never Used Second Hand Smoke Exposure: No Use of substances other than those prescribed or required for medical reasons: No Advance Directives: No Do you have a plan to hurt others: No Plan Patient : No service: No Current occupational status: employed Cognitive needs: No Hearing needs: No Vision needs: No Physical Exam Vital Signs: Vital Signs: Last Vital Signs Temp 97.8 F 10/20/24 08:20 Pulse 80 10/20/24 08:20 Resp 14 10/20/24 08:20 BP 120/78 10/20/24 08:20 Pulse Ox 97 10/20/24 08:20 O2 Del Method Room Air 10/20/24 08:20 BMI result Body Mass Index 41.4 Appearance: Alert. Oriented X3. No acute distress. Eyes: Pupils equal, round and reactive to light. ENT: Pharynx normal. Neck: Normal inspection. Neck supple. No lymph nodes noted. No crepitus CVS: Normal heart rate and rhythm. Pulses normal. Normal S1 and S2 Respiratory: No respiratory distress. Breath sounds normal. No Wheezing. No rales Abdomen: Soft and nontender. No rigidity. No distention. good BS x4 Skin: Skin warm and dry. Normal skin color. Normal skin turgor. Extremities: No lower extremity edema. Neurovascular intact to all extremities. No Lacerations. No Rash Neuro: Oriented X 3. No motor deficit. No sensory deficit. Moving all extermities. No slurred speech. Good sensation in bilateral lower extremity negative straight leg raise test. Medications Administered Discontinued Medications Generic Name Dose Route Start Last Admin Trade Name Freq PRN Reason Stop Dose Admin Sodium Chloride 1,000 mls @ 999 mls/hr 10/20/24 08:00 10/20/24 08:44 Ns IV 10/20/24 09:00 999 mls/hr .Q1H1M IVON Administration Ketorolac Tromethamine 15 mg 10/20/24 08:01 10/20/24 08:44 Ketorolac Tromethamine 15 Mg/Ml Vial IVPUSH 10/20/24 08:02 15 mg ONCE ONE Administration Midazolam HCl 1 mg 10/20/24 08:04 10/20/24 08:44 Midazolam Hcl 2 Mg/2 Ml Vial IVPUSH 10/20/24 08:05 1 mg ONCE ONE Administration Medical Decision Making Medical Decision Making [facility] Narrative: Patient 59 years old presented today with having flank pain back pain radiating down to the leg. CT scan of the abdomen pelvis was grossly negative for any acute evidence of kidney stone. No obstruction no diverticulitis. Patient's urine was heavily contaminated. Question infection versus contamination. Nevertheless will give a dose of Rocephin will give patient antibiotics for outpatient basis. Will discharge patient home. Additional pain medication given for the back pain. Will give patient a couple days off from work. Close follow-up advised. Differential Diagnosis Differential Diagnoses: The differential diagnosis associated with the presentation includes Shingles, UTI, Admission/Observation Consideration of admission/observation: Escalation of care including admission/observation considered Lab Data [facility] Lab Attestation statement: I reviewed the patient's lab results. 10/20/24 08:20 10/20/24 08:20 Labs: Lab Results 10/20/24 10/20/24 Range/Units 08:20 08:35 WBC 5.2 (4.8-10.8) X10*3/uL RBC 3.96 L (4.20-5.50) X10*6/uL Hgb 12.0 (12.0-16.0) g/dl Hct 35.2 L (37.0-47.0) % MCV 88.9 (80.0-98.0) fL MCH 30.3 (27.0-33.0) pg MCHC 34.1 (31.0-35.0) g/dl RDW 13.2 (11.0-16.0) % Plt Count 277 (160-400) X10*3/uL MPV 9.9 (9.4-12.3) fL Immature Gran % (Auto) 0.2 (0.0-0.4) % Neut % (Auto) 66.5 (45-73) % Lymph % (Auto) 23.0 (20-40) % [place] % (Auto) 6.0 (2-11) % Eos % (Auto) 3.3 (0-4) % Baso % (Auto) 1.0 (0-2) % Lymph # (Auto) 1.2 (1.2-4.9) X10*3/uL [place] # (Auto) 0.3 (0.1-1.2) X10*3/uL Eos # (Auto) 0.2 (0.0-0.4) X10*3/uL Baso # (Auto) 0.1 (0.0-0.2) X10*3/uL Abs Immat Gran (auto) 0.01 (0.00-0.03) X10*3/uL Absolute Neuts (auto) 3.5 (2.0-8.3) x10*3/uL Absolute Nucleated RBC 0.000 (0.0-0.012) X10*3/uL Nucleated RBC % (auto) 0.0 (0.0-0.2) /100WBC Sodium 142 (135-145) mmol/L Potassium 4.3 (3.3-5.1) mmol/L Chloride 110 H (96-108) mmol/L Carbon Dioxide 26 (22-29) mmol/L Anion Gap 10 L (12-20) BUN 19 H (9-16) mg/dL Creatinine 0.61 (0.5-1.4) mg/dL Estim Creat Clear Calc 118.7 Estimated GFR > 60 Random Glucose 104 (60-115) mg/dL Calcium 8.7 (8.4-10.2) mg/dL Total Bilirubin 0.3 (0.0-1.0) mg/dL Direct Bilirubin 0.1 (0.0-0.5) mg/dL AST 16 (5-31) U/L ALT 7 (0-31) U/L Alkaline Phosphatase 73 (39-117) U/L Total Protein 6.6 (6.5-8.0) g/dL Albumin 4.0 (3.5-5.0) g/dL Lipase 16 (8-78) U/L Urine Color Yellow Urine Appearance Cloudy Urine pH 5.5 (5.0-9.0) Ur Specific [place] 1.015 (1.005-1.025) Urine Protein Negative (Neg-Trace) mg/dL Urine Glucose (UA) Negative (Negative) mg/dL Urine Ketones Negative (Negative) mg/dL Urine Blood Negative (Negative) Urine Nitrite Negative (Negative) Ur Leukocyte Esterase Large (3+) H (Negative) Urine RBC 0-2 (0-2) /HPF Urine WBC >50 H (0-5) /HPF Ur Squamous Epith Cells >20 (0-2) /HPF Urine Bacteria 4+ (None Seen) Hyaline Casts 0-2 (0-2) /LPF Independent Interpretation I performed an independent interpretation of an: CT Scan (No obstruction no abscess no perforation) Radiology Impression Discussion of test interpretation with radiology: I have reviewed the radiologist's reading. Discharge Plan Discharge Clinical Impression: Sciatica, Urinary tract infection Patient Disposition: Home, Self-Care Instructions: Urinary Tract Infection in Women (DC) Prescriptions: New ibuprofen 400 mg tablet 400 mg PO Q6H PRN (Reason: pain) Qty: 20 0RF cefuroxime axetil 500 mg tablet 500 mg PO BID 7 Days Qty: 14 0RF cyclobenzaprine 10 mg tablet 10 mg PO TID PRN (Reason: pain) Qty: 14 0RF No Action ProAir RespiClick 90 mcg/actuation aerosol powdr breath activated 2 inh inhalation Q4H PRN (Reason: shortness of breath or wheezing) 30 Days Qty: 1 8RF levothyroxine 137 mcg tablet 137 mcg PO DAILY Qty: 30 2RF (DME) compression socks, x-large Misc See Rx Instructions .Route Qty: 2 0RF Rx Instructions: As directed: 15-20mmHg Referrals: Physician,Unknown J [Primary Care Provider, Medical] Referral Note: Follow-up with your primary in 2 days Stand Alone Forms: Work/School Release Print Language: Turkmen
[2024-10-20 08:20] VITALS: BP 120/78; PULSE 80; RESP 14; TEMP 36.6; O2SAT 97
[2024-10-20 08:25] LABS: MANUAL DIFF FLAG NO
--- NOTE | 2024-10-20 08:28 | PC.NURSE ---
Pt ambulatory with a steady gait to BR to provide urine sample.
[2024-10-20 08:32] LABS: Hematocrit 35.2 % (37.0-47.0); Hemoglobin 12.0 g/dl (12.0-16.0); Imm Gran Abs Auto 0.01 X10*3/uL (0.00-0.03); Imm Gran Pct Auto 0.2 % (0.0-0.4); Lymphocytes Absolute Auto 1.2 X10*3/uL (1.2-4.9); Mean Corpuscular HGB Conc 34.1 g/dl (31.0-35.0); Mean Corpuscular Hemoglobin 30.3 pg (27.0-33.0); Mean Corpuscular Volume 88.9 fL (80.0-98.0); NRBC Abs Auto 0.000 X10*3/uL (0.0-0.012); NRBC Pct Auto 0.0 /100WBC (0.0-0.2); Platelet Count 277 X10*3/uL (160-400); Red Blood Count 3.96 X10*6/uL (4.20-5.50); White Blood Count 5.2 X10*3/uL (4.8-10.8)
[2024-10-20 08:42] LABS: Alanine Aminotransferase 7 U/L (0-31); Albumin Level 4.0 g/dL (3.5-5.0); Alkaline Phosphatase 73 U/L (39-117); Anion Gap 10 (12-20); Aspartate Amino Transferase 16 U/L (5-31); Blood Urea Nitrogen 19 mg/dL (9-16); Calcium 8.7 mg/dL (8.4-10.2); Carbon Dioxide 26 mmol/L (22-29); Chloride 110 mmol/L (96-108); Creatinine Clr Calc Pharmacy 118.7; Estimated Glomerular Filt Rate > 60; Lipase 16 U/L (8-78); Potassium 4.3 mmol/L (3.3-5.1); Sodium 142 mmol/L (135-145); Total Protein 6.6 g/dL (6.5-8.0)
[2024-10-20 08:43] LABS: Appearance Urine Cloudy; Glucose Urine UA Negative (Negative); PH 5.5 (5.0-9.0); Specific Gravity - Urine 1.015 (1.005-1.025); UMIC TRIGGER UACC YES
[2024-10-20 08:48] LABS: UACC Culture Trigger YES
[2024-10-20 10:38] VITALS: BP 123/69; PULSE 68; RESP 12; TEMP 36.5; O2SAT 98
[2024-10-20 11:48] VITALS: BP 123/69; PULSE 68; RESP 12; TEMP 36.5; O2SAT 98
== END 2024-10-20 11:49 | disposition home or self-care (01) ==
PROVIDERS: Emergency Provider Emergency Medicine Emergency Medical Services
DX: M54.42 Lumbago with sciatica, left side (principal); N39.0 Urinary tract infection, site not specified
CPT/HCPCS: 36415; 74176; 80048; 80076; 81001; 83690; 85025; 87086; 96361; 96374; 96375; 99284; 99285; J0696; J1171; J1885; J2250

== ENCOUNTER → 2024-10-20 08:00 | Outpatient (BNV) | payer OTHER, SELFPAY | PROVIDERS: Emergency Provider Emergency Medicine Emergency Medical Services; Visit Provider Radiology Vascular & Interventional Radiology | DX: K56.41 Fecal impaction (principal) | CPT/HCPCS: 74176 ==

== ENCOUNTER 2024-10-27 08:16 | Outpatient (REF) | payer OTHER, SELFPAY ==
--- NOTE | ~2024-10-27 | US_ITS ---
EXAMINATION: US LOWER EXTREMITY VENOUS (REFLUX EXAM), BILATERAL CLINICAL INFORMATION: Varices. COMPARISON: None. TECHNIQUE: Color flow triplex imaging and compression Doppler was performed to evaluate both the deep and the superficial systems bilaterally. To evaluate the superficial system, the examination was performed in the upright position. Color-flow Doppler ultrasound and compression ultrasound were utilized. In addition, maneuvers were utilized to demonstrate reflux. FINDINGS: 1. DEEP VENOUS ULTRASOUND OF THE RIGHT LOWER EXTREMITY: Common Femoral Vein: Compressible, normal respiratory variation and augmented flow. Femoral Vein: Compressible, normal color flow and augmentation. Popliteal Vein: Compressible, normal augmentation. Deep Reflux: There is no evidence of reflux in the deep system in either the common femoral vein, superficial femoral or the popliteal vein. There is no evidence of a Rm's cyst. 2. SUPERFICIAL ULTRASOUND WITH DOPPLER OF RIGHT LOWER EXTREMITY: GREAT SAPHENOUS VEIN: Saphenofemoral Junction: 0.8 cm; Reflux: 0 ms Proximal Thigh: 0.5 cm; Reflux: 0 ms Mid Thigh: 0.4 cm; Reflux: 0 ms Distal Thigh: 0.3 cm; Reflux: 0 ms At Knee: 0.4 cm; Reflux: 0 ms Proximal Calf: 0.2 cm; Reflux: 0 ms Mid Calf: 0.2 cm; Reflux: 0 ms Distal Calf: 0.3 cm; Reflux: 0 ms DUPLICATED MEDIAL GREAT SAPHENOUS VEIN: Diameter: 0.2-0.4 cm. Reflux: NA DUPLICATED LATERAL GREAT SAPHENOUS VEIN: Diameter: None imaged Reflux: NA SMALL SAPHENOUS VEIN: Saphenopopliteal Junction: 0.2 cm; Reflux: 0 ms Proximal: 0.3 cm; Reflux: 0 ms Distal: 0.2 cm; Reflux: 952 ms VEIN OF GIACOMINI: Size: NA Reflux: NA PERFORATORS: Location: Mid calf. Size: 2.2 cm. Reflux: NA VARICOSITIES: Location: Mid thigh and at the knee. Size: 0.3 cm. Reflux: 1088 ms at the knee. 3. DEEP VENOUS ULTRASOUND OF THE LEFT LOWER EXTREMITY: Common Femoral Vein: Compressible, normal respiratory variation and augmented flow. Femoral Vein: Compressible, normal color flow and augmentation. Popliteal Vein: Compressible, normal augmentation. Deep Reflux: There is no evidence of reflux in the deep system in either the common femoral vein, superficial femoral or the popliteal vein. There is no evidence of a Rm's cyst. 4. SUPERFICIAL ULTRASOUND WITH DOPPLER OF LEFT LOWER EXTREMITY: GREAT SAPHENOUS VEIN: Saphenofemoral Junction: 1.2 cm; Reflux: 0 ms Proximal Thigh: 0.4 cm; Reflux: 0 ms Mid Thigh: 0.4 cm; Reflux: 0 ms Distal Thigh: 0.3 cm; Reflux: 0 ms At Knee: 0.3 cm; Reflux: 0 ms Proximal Calf: 0.2 cm; Reflux: 0 ms Mid Calf: 0.2 cm; Reflux: 0 ms Distal Calf: 0.2 cm; Reflux: 0 ms DUPLICATED MEDIAL GREAT SAPHENOUS VEIN: Diameter: None imaged Reflux: NA DUPLICATED LATERAL GREAT SAPHENOUS VEIN: Diameter: 0.3 cm. Reflux: NA SMALL SAPHENOUS VEIN: Saphenopopliteal Junction: 0.6 cm; Reflux: 0 ms Proximal: 0.3 cm; Reflux: 0 ms Distal: 0.2 cm; Reflux: 0 ms VEIN OF GIACOMINI: Size: 0.3 cm. Reflux: NA PERFORATORS: Location: Distal thigh and proximal calf. Size: 0.1-0.3 cm. Reflux: NA VARICOSITIES: Location: None Imaged Size: NA Reflux: NA US/US venous insuf bilat IMPRESSION: Right: Venous insufficiency, small saphenous vein at the distal calf. Varices with reflux at the knee level. Left: No venous insufficiency. Perforators without reflux. No gross varices. Electronically signed by: Charles Mcclure MD 10/27/2024 09:49 AM EDT
== END 2024-10-27 08:17 | disposition home or self-care (01) ==
LOC: HO.US 08:16
PROVIDERS: Visit Provider Physician Assistant Surgical
DX: I83.11 Varicose veins of right lower extremity with inflammation (principal); I83.12 Varicose veins of left lower extremity with inflammation
CPT/HCPCS: 93970

== ENCOUNTER → 2024-10-27 08:19 | Outpatient (BNV) | payer OTHER, SELFPAY | PROVIDERS: Visit Provider Radiology Diagnostic Radiology | DX: I87.2 Venous insufficiency (chronic) (peripheral) (principal); I83.812 Varicose veins of left lower extremity with pain | CPT/HCPCS: 93970 ==

== ENCOUNTER 2024-11-08 08:39 | Outpatient (AMB) | payer OTHER, SELFPAY ==
--- NOTE | 2024-11-08 08:42 | MHC.PC.OV ---
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 Accompanied by: Self / Same As Patient Allergies docosanol (From Abreva) Allergy (Intermediate, Verified 11/08/24 09:15) Blister Medication List - Last Reconciled 11/08/24 by Emily Adkins PA-C albuterol sulfate 90 mcg/actuation (ProAir RespiClick) 2 inhalations inhalation Q4H PRN 30 days cefuroxime axetil 500 mg PO BID 7 days compression socks, x-large As directed: 15-20mmHg cyclobenzaprine 10 mg PO TID PRN ibuprofen 400 mg PO Q6H PRN levothyroxine 137 mcg PO DAILY Tobacco use date assessed: 11/08/24 Dental Screening Dental Screen Date: 11/08/24 Did you have a dental visit in the last 12 months?: No Did you have a dental problem in the last 6 months where you did not have access to dental care?: No Was dental information given to patient?: Yes HPI f/u leg swelling HPI Details 59-year-old female with past medical history of hypothyroidism last seen 08/2024 coming in for follow up.? In review of the notes, patient was seen by vascular surgery 09/2024 plan to rule out venous insufficiency with ultrasound and follow up afterwards.? The ultrasound was completed 10/2024 showing venous insufficiency of the right small saphenous vein of the distal calf and varices with reflux of the knee level. Presenting with leg swelling and ultrasound review. Venous insufficiency was identified on the right side, specifically in the small saphenous vein with reflux noted at the knee level. The patient reports swelling in both legs, with the left leg being more swollen despite no venous insufficiency detected on ultrasound. The swelling in the left leg has been persistent for approximately six to seven years. The patient uses compression stockings due to prolonged standing at work, which provides some relief. Thyroid dysfunction was noted with abnormal thyroid levels, and levothyroxine dosage was adjusted. [facility] Surgical History H/O unilateral oophorectomy Family History Mother Diabetes Father Diabetes Social History Housing: House Alcohol intake: current Alcohol intake frequency: holidays/special occasions only Alcohol type: wine Patient Tobacco Use Status: Never used Tobacco Tobacco use type: Cigarette e-Cigarette/Vaping Use: Never Used Second Hand Smoke Exposure: No service: No Current occupational status: employed Cognitive needs: No Hearing needs: No Vision needs: No Questionnaire Thrive Questionnaire Date Thrive assessed: 11/08/24 I am a: Patient What is your living situation today?: I have a steady place to live Within the past 12 months, did the food you bought not last and you didn't have the money to get more?: Never true Within the past 12 months, did you worry whether your food would run out before you got money to buy more?: Never true Do you have trouble paying for medicines?: No Do you have trouble getting transportation to medical appointments?: No Do you have trouble paying your heating and electricity bill?: Yes Do you have trouble taking care of your child, family member or friend?: No Do you have trouble with day-to-day activities such as bathing, preparing meals, shopping, managing finances, etc.?: No Are you currently unemployed and looking for a job?: No Are you interested in more education?: No Please select the resources that you would like help with: None Currently or been in a relationship where the following occur: No concerns reported THRIVE Score: 1 GUICHO-7 AMB Questionnaire GUICHO-7 Date GUICHO - 7 assessed: 11/08/24 Source: Developed by Drs. Jerardo Clay, Janet Olmos, Victor M Perez and colleagues, with an educational cayla from [employer]. Review of Systems Const Denies body aches, Denies chills, Denies fever(s), Denies headache(s) and Denies poor appetite Eyes Reports no additional complaints ENT Denies dizziness and Denies headache(s) Card Denies chest pain, Denies edema, Denies lightheadedness and Denies dyspnea Resp Denies dyspnea GI Denies nausea and Denies vomiting Reports no additional complaints Musc Reports no additional complaints and Denies abnormal gait Skin/Breast Reports system reviewed and no additional complaints, except as documented Neuro Denies abnormal gait, Denies dizziness and Denies headache(s) Psych Reports no additional complaints Physical exam (Primary Care) Vital Signs: Last Vital Signs Pulse 75 11/08/24 08:43 BP 138/72 11/08/24 08:43 Pulse Ox 99 11/08/24 08:43 Oxygen Delivery Method Room Air 11/08/24 08:43 BMI result Body Mass Index 41.8 Tobacco/Smoking Status: Tobacco use Status Tobacco use date assessed 11/08/24 11/08/24 08:45 Patient Tobacco Use Status Never used Tobacco 11/08/24 08:45 Tobacco use type Cigarette 11/08/24 08:45 e-Cigarette/Vaping Use Never Used 11/08/24 08:45 Thrive Assessment: Date of Thrive Assessment Date Thrive assessed 11/08/24 11/08/24 08:45 Currently or been in a relationship where the following occur: No concerns reported Const General: cooperative, healthy appearing, comfortable and no acute distress Orientation/consciousness: patient oriented x3 HENMT Head: Yes normocephalic Ears: hearing grossly normal bilaterally General nose exam: Normal external nose present Eyes General: appearance normal, both eyes and all related structures Conjunctivae: conjunctivae normal Neck Neck: Yes full ROM and Yes no lymphadenopathy Resp Effort & Inspection: normal respiratory effort Auscultation: clear to auscultation bilaterally, no crackles, no rales, no rhonchi and no wheezes Cardio Rate: regular rate Rhythm: regular rhythm Skin General skin exam: no rashes or lesions noted Neuro General: patient oriented x3 Gait exam (Neuro): Normal gait present Extrem Other: jacey LE swelling L > R without overlying skin changes, tenderness, warmth, redness General: Yes normal to inspection, Yes full ROM and No edema Psych Affect: normal affect Attitude: cooperative Insight: Good insight present (Psych) Judgement: Good judgement present (Psych) Coding Level of Care Code Est Pt Level 3 (53455) Diagnoses Varicose veins of both lower extremities with inflammation I83.11; I83.12 Fatty liver K76.0 Hypothyroid E03.9 Morbid obesity with BMI of 40.0-44.9, adult E66.01; Z68.41 Assessment & Plan Assessment & Plan (1) Varicose veins of both lower extremities with inflammation: Code(s): I83.11 - Varicose veins of right lower extremity with inflammation; I83.12 - Varicose veins of left lower extremity with inflammation Category: Medical Plan: Patient recently completed venous insufficiency ultrasound which did reveal venous insufficiency and reflux on the right side. I advised patient to reach out to vascular surgery to reschedule this appointment. Continue with compression stockings, exercise as tolerated and leg elevation when possible. Low suspicion for DVT at this time as her presentation has not changed or worsened. (2) Fatty liver: Code(s): K76.0 - Fatty (change of) liver, not elsewhere classified Category: Medical Plan: Healthy diet and regular exercise is encouraged. (3) Hypothyroid: Code(s): E03.9 - Hypothyroidism, unspecified Category: Medical Plan: Continue to monitor thyroid levels reminded patient about blood work due to recent increase in levothyroxine (4) Morbid obesity with BMI of 40.0-44.9, adult: Code(s): E66.01 - Morbid (severe) obesity due to excess calories; Z68.41 - Body mass index [BMI] 40.0-44.9, adult Category: Medical Plan: Healthy diet and regular exercise is encouraged. Referral was placed to diet and nutrition today Plan The patient is advised to follow up with a vascular surgeon to further evaluate the venous insufficiency and leg swelling, particularly on the left side where no venous insufficiency was detected. Compression stockings are recommended during physical activities to help manage the swelling, especially given the patient's occupation requiring prolonged standing. Thyroid levels will be retested in the coming weeks to assess the effectiveness of the adjusted levothyroxine dosage. The patient is encouraged to maintain a healthy lifestyle, including regular exercise and dietary management, to address hypercholesterolemia and support weight management. This note was constructed using voice recognition software. While every effort has been made to ensure accuracy and cumulative effects analyst, still areas may have been included sometimes these areas may affect the content or meeting of the given symptoms. Total time spent caring for the patient today was 20 minutes. This includes time spent before the visit reviewing the chart, time spent during the visit, and time spent after the visit and documentation. Patient was informed and verbally consented to the use of an ambient scribe for clinic note documentation during this visit. Orders: Referrals Web Page Developer Nutrition Referral E66.01 - Morbid (severe) obesity due to excess calories, Z68.41 - Body mass index [BMI] 40.0-44.9, adult
[2024-11-08 08:43] VITALS: BP 138/72; PULSE 75; O2SAT 99; BMI 41.8
== END 2024-11-08 10:05 | disposition home or self-care (01) ==
LOC: HO.HMCH 08:40
DX: I83.11 Varicose veins of right lower extremity with inflammation (principal); E66.01 Morbid (severe) obesity due to excess calories; Z68.41 Body mass index [BMI] 40.0-44.9, adult; I83.12 Varicose veins of left lower extremity with inflammation; K76.0 Fatty (change of) liver, not elsewhere classified; E03.9 Hypothyroidism, unspecified

== ENCOUNTER → 2024-11-08 08:39 | Outpatient (BNVA) | payer OTHER, SELFPAY | DX: I83.11 Varicose veins of right lower extremity with inflammation (principal); I83.12 Varicose veins of left lower extremity with inflammation; E03.9 Hypothyroidism, unspecified; K76.0 Fatty (change of) liver, not elsewhere classified; E66.01 Morbid (severe) obesity due to excess calories; Z68.41 Body mass index [BMI] 40.0-44.9, adult | CPT/HCPCS: 99212 ==

== ENCOUNTER 2024-11-29 09:08 | Outpatient (AMB) | payer OTHER, SELFPAY ==
[2024-11-29 09:25] VITALS: BP 128/84; PULSE 80; TEMP 36.8; O2SAT 99; BMI 42.2
--- NOTE | 2024-11-29 09:25 | AM.OFFWIN_ITS ---
Intake Vital Signs 11/29/24 09:25 Height 5 ft 3 in Weight 238 lb 4 oz BMI 42.2 BP 128/84 Blood Pressure Location Rt brachial Position Sitting Pulse 80 Pulse Source Pulse Oximeter Temp 98.2 F Temp Source Oral Pulse Oximetry (%) 99 Oxygen Delivery Method Room Air Intake Visit Reasons: EP Lymphedema rash? 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 Describes the rash has Red, small dots and itchy. Denies any new soaps, detergent, diet or cosmetic products. Denies any fevers, chills, body aches, nausea or vomiting. 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 Surgical History H/O unilateral oophorectomy Family History Mother Diabetes Father Diabetes Social History Housing: House Alcohol intake: current Alcohol intake frequency: holidays/special occasions only Alcohol type: wine Patient Tobacco Use Status: Never used Tobacco Tobacco use type: Cigarette e-Cigarette/Vaping Use: Never Used Second Hand Smoke Exposure: No Patient : No service: No Current occupational status: employed Cognitive needs: No Hearing needs: No Vision needs: No Review of Systems Const All systems reviewed & are unremarkable except as noted in HPI and below Physical Exam Vital Signs: Last Vital Signs Temp 98.2 F 11/29/24 09:25 Pulse 80 11/29/24 09:25 BP 128/84 11/29/24 09:25 Pulse Ox 99 11/29/24 09:25 Oxygen Delivery Method Room Air 11/29/24 09:25 BMI result Body Mass Index 42.2 Const General: no acute distress Nutritional Appearance: obese morbidly obese Orientation/consciousness: patient oriented x3 Skin Other: Maculopapular erthymatous rash left anterior Ankle. Neuro General: patient oriented x3, gait normal and moves all extremities Extrem Left lower extremity: lower leg (Lymphadema lower leg) Psych Speech and movement: Normal speech and movement present Assessment & Plan Assessment & Plan (1) Rash: Code(s): R21 - Rash and other nonspecific skin eruption Plan: Possibly Contact dermatitis. Ordered Topical Steroid cream Advised to RTC if rash not better in 3 days. Medications: New triamcinolone acetonide 0.1% 1 appl topical BID 15 grams 0RF 7 days R21 - Rash and other nonspecific skin eruption Coding Level of Care Code Est Pt Level 4 (36328) Diagnoses Rash R21 Time Spent (min) 20
== END 2024-11-29 10:19 | disposition home or self-care (01) ==
PROVIDERS: Visit Provider Nurse Practitioner Family
DX: R21 Rash and other nonspecific skin eruption (principal)

== ENCOUNTER → 2024-11-29 09:08 | Outpatient (BNVA) | payer OTHER, SELFPAY | PROVIDERS: Visit Provider Nurse Practitioner Family | DX: R21 Rash and other nonspecific skin eruption (principal); I89.0 Lymphedema, not elsewhere classified | CPT/HCPCS: 99212 ==

== ENCOUNTER 2025-01-15 20:46 | Observation (INO) | payer OTHER, SELFPAY ==
--- NOTE | ~2025-01-15 | XR_ITS ---
CLINICAL HISTORY: cp Exam: AP portable chest x-ray. Comparison: November 18, 2022. Findings: Lungs are well inflated. Cardiac silhouette is within normal limits. No focal areas of consolidation. No pleural effusion or pneumothorax. Impression: No acute findings. This document has been electronically signed by: Adriel Alatorre MD on 01/15/2025 23:54:44
--- NOTE | 2025-01-15 20:48 | ECG_ITS ---
Test Reason : chest pain Blood Pressure : */* mmHG Vent. Rate : 89 BPM Atrial Rate : 89 BPM P-R Int : 174 ms QRS Dur : 84 ms QT Int : 352 ms P-R-T Axes : 53 14 36 degrees QTcB Int : 428 ms Normal sinus rhythm Normal ECG When compared with ECG of 24-Jan-2024 08:28, No significant change was found Referred By: Mirtha Lopez Electronically Signed By: Oliver Chauhan
[2025-01-15 20:58] VITALS: BP 166/78; PULSE 86; RESP 16; TEMP 36.9; O2SAT 96; BMI 43.7
[2025-01-15 21:04] VITALS: PULSE 84
[2025-01-15 21:19] LABS: Hematocrit 34.7 % (37.0-47.0); Hemoglobin 12.0 g/dl (12.0-16.0); Imm Gran Abs Auto 0.01 X10*3/uL (0.00-0.03); Imm Gran Pct Auto 0.2 % (0.0-0.4); Lymphocytes Absolute Auto 1.6 X10*3/uL (1.2-4.9); MANUAL DIFF FLAG NO; Mean Corpuscular HGB Conc 34.6 g/dl (31.0-35.0); Mean Corpuscular Hemoglobin 30.2 pg (27.0-33.0); Mean Corpuscular Volume 87.4 fL (80.0-98.0); NRBC Abs Auto 0.000 X10*3/uL (0.0-0.012); NRBC Pct Auto 0.0 /100WBC (0.0-0.2); Platelet Count 264 X10*3/uL (160-400); Red Blood Count 3.97 X10*6/uL (4.20-5.50); White Blood Count 6.0 X10*3/uL (4.8-10.8)
--- NOTE | 2025-01-15 21:22 | PC.NURSE ---
pt a&ox4, respirations even and unlabored. pt reports onset of chest palpitations intermittent x1 week. pt reports she feels as if they worsen when she sits down. pt reports she had a dose adjustment of her thyroid medication and is unsure if it is related. pt denies cp and sob. nsr on tele. 20g left ac and labs obtained.
[2025-01-15 21:40] LABS: Alanine Aminotransferase 12 U/L (0-31); Albumin Level 4.2 g/dL (3.5-5.0); Alkaline Phosphatase 78 U/L (39-117); Anion Gap 12 (12-20); Aspartate Amino Transferase 17 U/L (5-31); Blood Urea Nitrogen 13 mg/dL (9-16); Calcium 9.3 mg/dL (8.4-10.2); Carbon Dioxide 25 mmol/L (22-29); Chloride 110 mmol/L (96-108); Creatinine Clr Calc Pharmacy 86.7; Estimated Glomerular Filt Rate > 60; Magnesium 1.8 mg/dL (1.6-2.6); Potassium 4.0 mmol/L (3.3-5.1); Sodium 143 mmol/L (135-145); Total Protein 6.9 g/dL (6.5-8.0)
[2025-01-15 21:41] LABS: Troponin-I High Sensitivity < 2.7 ng/L (<3.5-17.0)
--- NOTE | 2025-01-15 22:41 | ED.ARRPALP ---
HPI - Arrhythmia/Palpitations General Chief Complaint: Arrhythmia/Palpitations Stated Complaint: palpatations x3 days Time Seen by Provider: 01/15/25 22:00 History of Present Illness HPI narrative: Patient is a 59-year-old female with a history of heart palpitation for the last 3 days. She was feeling short of breath. From chest tightness at that time. Happened 3 to 4 times a day. Never had any syncopal episode . She did feel somewhat lightheaded at time. There is no blood in stool. There is no bloody urine. Patient is from home. No cough no congestion upper respiratory symptoms. No diaphoresis. No history of blood clots. No leg swelling. On Synthroid. Related Data Previous Rx's ?Medication ?Instructions ?Recorded albuterol sulfate 90 mcg/actuation 2 inh inhalation Q4H PRN shortness 03/02/21 breath activated powder inhaler of breath or wheezing 30 days #1 ea (ProAir RespiClick) compression socks, x-large #2 ea 09/06/24 triamcinolone acetonide 0.1 % 1 appl topical BID 7 days #15 grams 11/29/24 topical cream levothyroxine 137 mcg tablet 137 mcg PO DAILY #90 tabs 01/02/25 Allergies Allergy/AdvReac Type Severity Reaction Status Date / Time docosanol (From [facility]) Allergy Intermediate Blister Verified 01/15/25 20:59 Review of Systems Review of Systems: Positive palpitation Yes all other systems are reviewed and are negative PMFSH Past Medical History Attestation statement: The following information was validated with the patient. Surgical History H/O unilateral oophorectomy Family History Family History Mother Diabetes Father Diabetes Social History Social History Housing: House Alcohol intake: current Alcohol intake frequency: holidays/special occasions only Alcohol type: wine Patient Tobacco Use Status: Never used Tobacco Tobacco use type: Cigarette Smoked in Last 30 Days: No e-Cigarette/Vaping Use: Never Used Second Hand Smoke Exposure: No Use of substances other than those prescribed or required for medical reasons: No Advance Directives: No Advance Directives Information Provided: Yes Do you have a plan to hurt others: No Plan Patient : No service: No Current occupational status: employed Cognitive needs: No Hearing needs: No Vision needs: No Physical Exam Exam: Exam: Appearance: Alert. Oriented X3. No acute distress. Eyes: Pupils equal, round and reactive to light. ENT: Pharynx normal. Neck: Normal inspection. Neck supple. No lymph nodes noted. No crepitus CVS: Normal heart rate and rhythm. Pulses normal. Normal S1 and S2 Respiratory: No respiratory distress. Breath sounds normal. No Wheezing. No rales Abdomen: Soft and nontender. No rigidity. No distention. good BS x4 Skin: Skin warm and dry. Normal skin color. Normal skin turgor. Extremities: No lower extremity edema. Neurovascular intact to all extremities. No Lacerations. No Rash Neuro: Oriented X 3. No motor deficit. No sensory deficit. Moving all extermities. No slurred speech Vital Signs: Vital Signs: Last Vital Signs Temp 97.9 F 01/15/25 23:34 Pulse 74 01/15/25 23:34 Resp 15 01/15/25 23:34 BP 149/59 H 01/15/25 23:34 Pulse Ox 97 01/15/25 23:34 O2 Del Method Room Air 01/15/25 23:34 BMI result Body Mass Index 43.7 Medical Decision Making Medical Decision Making [facility] Narrative: Episodes of palpitation along with light-headedness chest tightness. Patient's D-dimer is negative less likely to be secondary to PE. My interpretation patient's EKG showed a sinus rhythm heart rate is 90 SC QRS QTC normal no acute ST segment elevation patient monitored in the emergency department my interpretation patient's chest x-ray is grossly negative no pneumonia patient's TSH is 5.11 approximately normal especially when free T4 is in the normal range of 1.1. Troponin was negative. Case discussed with her will admit for observation overnight as patient had episodes of palpitation along with lightheadedness and dizziness along with chest pain. Hospitalist team was consulted agree with plan Differential Diagnosis Differential Diagnoses: The differential diagnosis associated with the presentation includes Near Syncope palpitation Admission/Observation Consideration of admission/observation: Escalation of care including admission/observation considered Consult Healthcare Provider Management of the patient was discussed with: Hospitalist Lab Data [facility] Lab Attestation statement: I reviewed the patient's lab results. 01/15/25 21:14 01/15/25 21:14 Labs: Lab Results 01/15/25 01/15/25 Range/Units 21:14 22:52 WBC 6.0 (4.8-10.8) X10*3/uL RBC 3.97 L (4.20-5.50) X10*6/uL Hgb 12.0 (12.0-16.0) g/dl Hct 34.7 L (37.0-47.0) % MCV 87.4 (80.0-98.0) fL MCH 30.2 (27.0-33.0) pg MCHC 34.6 (31.0-35.0) g/dl RDW 13.3 (11.0-16.0) % Plt Count 264 (160-400) X10*3/uL MPV 10.2 (9.4-12.3) fL Immature Gran % (Auto) 0.2 (0.0-0.4) % Neut % (Auto) 61.5 (45-73) % Lymph % (Auto) 27.3 (20-40) % [place] % (Auto) 6.3 (2-11) % Eos % (Auto) 3.7 (0-4) % Baso % (Auto) 1.0 (0-2) % Lymph # (Auto) 1.6 (1.2-4.9) X10*3/uL [place] # (Auto) 0.4 (0.1-1.2) X10*3/uL Eos # (Auto) 0.2 (0.0-0.4) X10*3/uL Baso # (Auto) 0.1 (0.0-0.2) X10*3/uL Abs Immat Gran (auto) 0.01 (0.00-0.03) X10*3/uL Absolute Neuts (auto) 3.7 (2.0-8.3) x10*3/uL Absolute Nucleated RBC 0.000 (0.0-0.012) X10*3/uL Nucleated RBC % (auto) 0.0 (0.0-0.2) /100WBC D-Dimer High Sensitivty < 150 NG/ML Sodium 143 (135-145) mmol/L Potassium 4.0 (3.3-5.1) mmol/L Chloride 110 H (96-108) mmol/L Carbon Dioxide 25 (22-29) mmol/L Anion Gap 12 (12-20) BUN 13 (9-16) mg/dL Creatinine 0.86 (0.5-1.4) mg/dL Estim Creat Clear Calc 86.7 Estimated GFR > 60 Random Glucose 94 (60-115) mg/dL Calcium 9.3 D (8.4-10.2) mg/dL Magnesium 1.8 (1.6-2.6) mg/dL Total Bilirubin 0.2 (0.0-1.0) mg/dL AST 17 (5-31) U/L ALT 12 (0-31) U/L Alkaline Phosphatase 78 (39-117) U/L Troponin I High Sens < 2.7 < 2.7 (<3.5-17.0) ng/L Total Protein 6.9 (6.5-8.0) g/dL Albumin 4.2 (3.5-5.0) g/dL TSH 5.11 H (0.32-4.0) uIU/mL Free T4 1.10 (0.71-1.85) ng/dL Independent Interpretation I performed an independent interpretation of an: EKG (Sinus heart rate is 80 SC QRS QTC normal no acute ST segment elevation) and Plain X-Ray (Chest x-ray is negative) Radiology Impression Discussion of test interpretation with radiology: I have reviewed the radiologist's reading. External Record Review External record reviewed: Office record Chronic Conditions Patient?s care impacted by: Hypertension Social Determinants Patient?s care significantly limited by Social Determinants of Health including: Problems related to primary support group Discharge Plan Discharge Clinical Impression: Heart palpitations, Near syncope Patient Disposition: Admitted As Inpatient Print Language: [place]
[2025-01-15 23:05] LABS: D Dimer High Sensitivity < 150 NG/ML
[2025-01-15 23:19] LABS: Troponin-I High Sensitivity < 2.7 ng/L (<3.5-17.0)
[2025-01-15 23:31] LABS: Free T4 (Free Thyroxine) 1.10 ng/dL (0.71-1.85)
[2025-01-15 23:34] VITALS: BP 149/59; PULSE 74; RESP 15; TEMP 36.6; O2SAT 97
--- NOTE | 2025-01-16 01:27 | PM.IMHP ---
History of Present Illness Date of Service: 01/16/25 Attending physician on admission: Jacek Fox Chief Complaint: palpitations Patient is a 59-year-old female with a past medical history significant for hypothyroid, mild intermittent asthma and morbid obesity, who presented to the ED due to intermittent palpitations for the past 3 days with associated shortness of breath and chest tightness. Patient reports that she experienced 3-4 episodes yesterday. She does have some additional lightheadedness with these episodes. No syncopal episodes. She denies any cough, fever, chills, nausea, vomiting or sore throat. Workup in the ED has been negative including EKG, telemetry, troponin, TSH, chest x-ray and D-dimer. Plan to admit patient for observation with telemetry and cardiology consult in the morning. Review of Systems Constitutional: Constitutional: Denies body ache(s), Denies chills, Denies fatigue, Denies fever(s) and Denies headache(s) Eyes: Eyes: Denies change in vision ENT: Denies headache(s), Denies nasal congestion and Denies sore throat Cardiovascular: Cardiovascular: Denies chest pain, Reports rapid heart rate, Denies leg edema, Reports lightheadedness and Reports dyspnea Respiratory: Respiratory: Denies chest congestion, Denies cough, Reports dyspnea and Denies wheezing Gastrointestinal: Gastrointestinal: Denies abdominal pain, Denies nausea and Denies vomiting Genitourinary: Genitourinary: Denies dysuria and Denies urinary urgency Musculoskeletal: Musculoskeletal: Denies myalgias Integumentary/Breasts: Skin/Breast: Denies rash Neurologic: Denies confusion and Denies headache(s) Psychiatric: Psychiatric: Denies confusion Endocrine: Endocrine: Denies fatigue Hematologic/Lymphatic: Hematologic/Lymphatic: Denies easy bleeding and Denies easy bruising Allergic/Immunologic: Allergic/Immunologic: Denies wheezing [facility] Medical History Fatty liver Morbid obesity with BMI of 40.0-44.9, adult Hypothyroid Functional capacity: independent ambulation Family History Mother Diabetes Father Diabetes Surgical History H/O unilateral oophorectomy Social History Housing: House Alcohol intake: current Alcohol intake frequency: holidays/special occasions only Alcohol type: wine Patient Tobacco Use Status: Never used Tobacco Tobacco use type: Cigarette Smoked in Last 30 Days: No e-Cigarette/Vaping Use: Never Used Second Hand Smoke Exposure: No Use of substances other than those prescribed or required for medical reasons: No Advance Directives: No Advance Directives Information Provided: Yes Do you have a plan to hurt others: No Plan Patient : No service: No Current occupational status: employed Cognitive needs: No Hearing needs: No Vision needs: No Meds Allergies Allergy/AdvReac Type Severity Reaction Status Date / Time docosanol (From [facility]) Allergy Intermediate Blister Verified 01/15/25 20:59 Active Medications: Current Medications Acetaminophen (Acetaminophen 325 Mg Tablet) 975 mg PO Q6H PRN PRN Reason: Pain, Mild 1-3,fever,headache Calcium Carbonate (Calcium Carbonate 750 Mg Tab.Chew) 750 mg PO Q4H PRN PRN Reason: Heartburn Enoxaparin Sodium (Enoxaparin Sodium 40 Mg/0.4 Ml Syringe) 40 mg SUBCUT Q24H IVON Last Admin: 01/16/25 00:29 Dose: 40 mg Magnesium Hydroxide (Milk Of Magnesia 30 Ml Oral.Susp) 30 ml PO DAILY PRN PRN Reason: Constipation Melatonin (Melatonin 3 Mg Tablet) 6 mg PO BEDTIME PRN PRN Reason: Insomnia Ondansetron HCl (Ondansetron Hcl 4 Mg/2 Ml Vial) 4 mg IVPUSH Q8H PRN PRN Reason: Nausea and Vomiting Oxycodone HCl (Oxycodone Hcl Immed Release 5 Mg Tablet) 5 mg PO Q6H PRN PRN Reason: Pain, Severe (Pain Scale 7-10) Sodium Chloride (0.9 % Sodium Chloride Flush 3 Ml Syringe) 3 ml IVFLUSH QSHIFT IVON Tramadol HCl (Tramadol Hcl 50 Mg Tablet) 50 mg PO Q6H PRN PRN Reason: Pain, Moderate(Pain Scale 4-6) Physical Exam Vital Signs and Narrative: Vital Signs: Last Vital Signs Temp 97.9 F 01/15/25 23:34 Pulse 74 01/15/25 23:34 Resp 15 01/15/25 23:34 BP 149/59 H 01/15/25 23:34 Pulse Ox 97 01/15/25 23:34 O2 Del Method Room Air 01/15/25 23:34 BMI result Body Mass Index 43.7 General: AOx3, no acute distress Resp: CTA bilaterally CVS: S1, S2, RRR GI: +BS, NT, no distention Skin: Warm, dry Neuro: Cranial nerves II-XII grossly intact bilaterally. Motor grossly intact bilaterally Extremities: No edema Psych: Appropriate affect Const: General: No confusion Orientation/consciousness: No confusion Neuro: General: No confusion Results Labs 01/15/25 21:14 01/15/25 21:14 Labs: Laboratory Results - last 24 hr 01/15/25 01/15/25 21:14 22:52 MCV 87.4 MCH 30.2 MCHC 34.6 RDW 13.3 Plt Count 264 MPV 10.2 Immature Gran % (Auto) 0.2 Neut % (Auto) 61.5 Lymph % (Auto) 27.3 [place] % (Auto) 6.3 Eos % (Auto) 3.7 Baso % (Auto) 1.0 Lymph # (Auto) 1.6 [place] # (Auto) 0.4 Eos # (Auto) 0.2 Baso # (Auto) 0.1 Abs Immat Gran (auto) 0.01 Absolute Neuts (auto) 3.7 Absolute Nucleated RBC 0.000 Nucleated RBC % (auto) 0.0 D-Dimer High Sensitivty < 150 Anion Gap 12 Estim Creat Clear Calc 86.7 Estimated GFR > 60 Random Glucose 94 Calcium 9.3 D Magnesium 1.8 Total Bilirubin 0.2 AST 17 ALT 12 Alkaline Phosphatase 78 Troponin I High Sens < 2.7 < 2.7 Total Protein 6.9 Albumin 4.2 TSH 5.11 H Free T4 1.10 Assessment and Plan (1) Heart palpitations: Status: Acute Plan Patient is a 59-year-old female with intermittent palpitations for the past 3 days with associated shortness of breath and chest tightness with a negative workup in the ED Cardiac palpitations - telemetry - echo - cardiology consult - check COVID Hypothyroid, T4 normal - continue levothyroxine Mild intermittent asthma, no acute exacerbation - albuterol as needed Morbid obesity - weight loss encouraged Med rec pending Full code VTE prophylaxis: Lovenox Patient with cardiac palpitations, requiring admission for observation, further evaluation and cardiology consultation. Quality Stroke Does the patient have a stroke diagnosis?: No VTE Prior VTE?: No VTE Risk Level:: Medical - moderate - high VTE Device Contraindication: Treatment Not Indicated VTE Drug Contraindication: N/A - Med Ordered
[2025-01-16 05:28] LABS: MANUAL DIFF FLAG NO
[2025-01-16 05:30] LABS: Hematocrit 33.6 % (37.0-47.0); Hemoglobin 11.4 g/dl (12.0-16.0); Imm Gran Abs Auto 0.02 X10*3/uL (0.00-0.03); Imm Gran Pct Auto 0.3 % (0.0-0.4); Lymphocytes Absolute Auto 2.1 X10*3/uL (1.2-4.9); Mean Corpuscular HGB Conc 33.9 g/dl (31.0-35.0); Mean Corpuscular Hemoglobin 29.9 pg (27.0-33.0); Mean Corpuscular Volume 88.2 fL (80.0-98.0); NRBC Abs Auto 0.000 X10*3/uL (0.0-0.012); NRBC Pct Auto 0.0 /100WBC (0.0-0.2); Platelet Count 249 X10*3/uL (160-400); Red Blood Count 3.81 X10*6/uL (4.20-5.50); White Blood Count 6.2 X10*3/uL (4.8-10.8)
[2025-01-16 05:51] LABS: Anion Gap 11 (12-20); Blood Urea Nitrogen 21 mg/dL (9-16); Calcium 8.9 mg/dL (8.4-10.2); Carbon Dioxide 26 mmol/L (22-29); Chloride 109 mmol/L (96-108); Creatinine Clr Calc Pharmacy 103.6; Estimated Glomerular Filt Rate > 60; Magnesium 2.0 mg/dL (1.6-2.6); Potassium 4.1 mmol/L (3.3-5.1); Sodium 142 mmol/L (135-145)
[2025-01-16 06:11] VITALS: BP 132/57; PULSE 76; RESP 17; TEMP 36.3; O2SAT 96
[2025-01-16 07:09] LABS: Resp Syncy Virus RNA Qual PCR NEGATIVE (Negative); SARS COV2 PCR INHOUSE NEGATIVE (Negative)
--- NOTE | 2025-01-16 07:19 | P.DS_ITS ---
DS: Providers Provider Date of Service: 01/16/25 Date of admission: 01/16/25 00:15 Date of discharge: 01/16/25 Primary care physician: Emily Adkins PA-C Consults: 01/16/25 01:22 Consult to Cardiology Routine Consulting Provider: [facility] [place] [facility] Reason for consultation: palpitations Has provider been notified: No DS: Diagnosis Discharge Diagnosis (1) Heart palpitations: Status: Acute DS: Summary Hospital Course Hospital Course: admission hpi Chief Complaint: palpitations Patient is a 59-year-old female with a past medical history significant for hy pothyroid, mild intermittent asthma and morbid obesity, who presented to the ED due to intermittent palpitations for the past 3 days with associated shortness of breath and chest tightness. Patient reports that she experienced 3-4 episodes yesterday. She does have some additional lightheadedness with these episodes. No syncopal episodes. She denies any cough, fever, chills, nausea, vomiting or sore throat. Workup in the ED has been negative including EKG, telemetry, troponin, TSH, chest x-ray and D-dimer. Plan to admit patient for observation with telemetry and cardiology consult in the morning. hospital course: Patient was observed on tele without any arrythmia to acccount for her palpitation, ECG was normal. Seen by cardiology and no further testing at this time Time Attestation Discharge Coordination Time (in mins): 35 Quality: Safe Use of Opioids Does Pt have an Active Cancer Diagnosis on the Problem List?: No Quality: Stroke Does the patient have a stroke diagnosis?: No Physical Exam Vital Signs: Vital Signs: Last Vital Signs Temp 97.3 F 01/16/25 06:11 Pulse 76 01/16/25 06:11 Resp 17 01/16/25 06:11 BP 132/57 L 01/16/25 06:11 Pulse Ox 96 01/16/25 06:11 O2 Del Method Room Air 01/16/25 06:11 BMI result Body Mass Index 43.7 DS: Data Data Completed and Pending Labs on day of discharge: Laboratory Results - last 24 hr 01/15/25 01/15/25 01/16/25 21:14 22:52 05:21 WBC 6.0 6.2 RBC 3.97 L 3.81 L Hgb 12.0 11.4 L Hct 34.7 L 33.6 L MCV 87.4 88.2 MCH 30.2 29.9 MCHC 34.6 33.9 RDW 13.3 13.4 Plt Count 264 249 MPV 10.2 10.0 Immature Gran % (Auto) 0.2 0.3 Neut % (Auto) 61.5 55.3 Lymph % (Auto) 27.3 33.0 [place] % (Auto) 6.3 6.4 Eos % (Auto) 3.7 3.9 Baso % (Auto) 1.0 1.1 Lymph # (Auto) 1.6 2.1 [place] # (Auto) 0.4 0.4 Eos # (Auto) 0.2 0.2 Baso # (Auto) 0.1 0.1 Abs Immat Gran (auto) 0.01 0.02 Absolute Neuts (auto) 3.7 3.4 Absolute Nucleated RBC 0.000 0.000 Nucleated RBC % (auto) 0.0 0.0 D-Dimer High Sensitivty < 150 Sodium 143 142 Potassium 4.0 4.1 Chloride 110 H 109 H Carbon Dioxide 25 26 Anion Gap 12 11 L BUN 13 21 H Creatinine 0.86 0.72 Estim Creat Clear Calc 86.7 103.6 Estimated GFR > 60 > 60 Random Glucose 94 97 Calcium 9.3 D 8.9 Magnesium 1.8 2.0 Total Bilirubin 0.2 AST 17 ALT 12 Alkaline Phosphatase 78 Troponin I High Sens < 2.7 < 2.7 Total Protein 6.9 Albumin 4.2 TSH 5.11 H Free T4 1.10 Influenza Type A (PCR) Influenza Type B (PCR) RSV RNA Qual (PCR) SARS-CoV-2 RNA (RT-PCR) 01/16/25 06:16 WBC RBC Hgb Hct MCV MCH MCHC RDW Plt Count MPV Immature Gran % (Auto) Neut % (Auto) Lymph % (Auto) [place] % (Auto) Eos % (Auto) Baso % (Auto) Lymph # (Auto) [place] # (Auto) Eos # (Auto) Baso # (Auto) Abs Immat Gran (auto) Absolute Neuts (auto) Absolute Nucleated RBC Nucleated RBC % (auto) D-Dimer High Sensitivty Sodium Potassium Chloride Carbon Dioxide Anion Gap BUN Creatinine Estim Creat Clear Calc Estimated GFR Random Glucose Calcium Magnesium Total Bilirubin AST ALT Alkaline Phosphatase Troponin I High Sens Total Protein Albumin TSH Free T4 Influenza Type A (PCR) NEGATIVE Influenza Type B (PCR) NEGATIVE RSV RNA Qual (PCR) NEGATIVE SARS-CoV-2 RNA (RT-PCR) NEGATIVE Discharge Plan Discharge Patient Disposition: Home, Self-Care Referrals: Emily Adkins PA-C [Primary Care Provider, Internal Medicine] - 1 Week Discharge Medications: Continued ProAir RespiClick 90 mcg/actuation aerosol powdr breath activated 2 inh inhalation Q4H PRN (Reason: shortness of breath or wheezing) 30 Days Qty: 1 8RF levothyroxine 137 mcg tablet 137 mcg PO DAILY Qty: 90 0RF triamcinolone acetonide 0.1 % cream 1 appl topical BID 7 Days Qty: 15 0RF (DME) compression socks, x-large Misc See Rx Instructions .Route Qty: 2 0RF Rx Instructions: As directed: 15-20mmHg Diet: Advance to usual diet Activity on Discharge: As tolerated Stand Alone Forms: Patient Portal Discharge page Print Language: [place] Care Plan Goals: recovery from palpitaions Health Concerns: palpitations Plan of Treatment: reassurance and follow up with your doctor in a week, outpatient echocardiogram Assessment: see above
--- NOTE | 2025-01-16 07:20 | PC.NURSE ---
Addendum entered by Tish Davidson RN 01/16/25 08:18: Patient is a 59-year-old female with a past medical history significant for hypothyroid, mild intermittent asthma and morbid obesity, who presented to the ED due to intermittent palpitations for the past 3 days with associated shortness of breath and chest tightness. Patient reports that she experienced 3-4 episodes yesterday. Patient alert and oriented. hall monitor maintained and NSR noted. Lungs clear bilat. Respirations even and non-labored. Denies any CP or SOB. Abdomen large, soft, non-tender with positive bowel sounds. Positive pedal pulses. Original Note: Medical History Fatty liver Morbid obesity with BMI of 40.0-44.9, adult Hypothyroid
[2025-01-16 08:00] VITALS: BP 136/67; PULSE 93; RESP 13; O2SAT 96
[2025-01-16] MEDS: 0.9 % Sodium Chloride Flush 3 ML SYRINGE IVFLUSH (08:16)
[2025-01-16 09:03] LABS: Chlamydia pneumoniae PCR Not Detected (Not Detect.); Coronavirus 229E PCR Not Detected (Not Detect.); Coronavirus HKU1 PCR Not Detected (Not Detect.); Coronavirus NL63 PCR Not Detected (Not Detect.); Coronavirus OC43 PCR Not Detected (Not Detect.); RSV PCR Not Detected (Not Detect.); Rhino/Enterovirus PCR Not Detected (Not Detect.)
[2025-01-16 09:48] LABS: Influenza A H1 PCR Not Detected (Not Detect.); Influenza A H1-2009 PCR Not Detected (Not Detect.); Influenza A H3 PCR Not Detected (Not Detect.); SARS-CoV-2 PCR Not Detected (Not Detect.)
--- NOTE | 2025-01-16 09:57 | PHA.MEDREC ---
Pharmacy Consult ? Medication Reconciliation Pharmacy has completed the medication reconciliation. Spoke with patient to confirm medications. She last took levothyroxine yesterday morning, confirmed her dose is now 137 mcg. Patient also reports taking OTC black seed oil and K2 vitamin. She does not know the doses. She did take black seed oil yesterday.
--- NOTE | 2025-01-16 11:01 | P.CONCA_ITS ---
History of Present Illness History of Present Illness Date of Service: 01/16/25 Chief complaint: palpitations Narrative: Pleasant 59-year-old lady who is here for palpitations. 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 She has been noticing palpitations while at work. She is describing them as a racing of her heart. This lasts for few sec. No chest discomfort. She has chronic dyspnea with activities and gets dyspnea on going uphill. She has a history of hypothyroidism and 2 months ago her levothyroxine dose was increased. The palpitations in his started [address] [facility] Past Medical History Medical History Fatty liver Morbid obesity with BMI of 40.0-44.9, adult Hypothyroid Family History Family History Mother Diabetes Father Diabetes Surgical History Surgical History H/O unilateral oophorectomy Social History Social History Housing: House Alcohol intake: current Alcohol intake frequency: holidays/special occasions only Alcohol type: wine Patient Tobacco Use Status: Never used Tobacco Tobacco use type: Cigarette Smoked in Last 30 Days: No e-Cigarette/Vaping Use: Never Used Second Hand Smoke Exposure: No Use of substances other than those prescribed or required for medical reasons: No Advance Directives: No Advance Directives Information Provided: Yes Do you have a plan to hurt others: No Plan Nutrition Risks: No Nutritional Risk Patient : No service: No Current occupational status: employed Cognitive needs: No Hearing needs: No Vision needs: No Meds Allergies Allergy/AdvReac Type Severity Reaction Status Date / Time docosanol (From Abreva) Allergy Intermediate Blister Verified 01/15/25 20:59 Active Medications: Current Medications Acetaminophen (Acetaminophen 325 Mg Tablet) 975 mg PO Q6H PRN PRN Reason: Pain, Mild 1-3,fever,headache Calcium Carbonate (Calcium Carbonate 750 Mg Tab.Chew) 750 mg PO Q4H PRN PRN Reason: Heartburn Enoxaparin Sodium (Enoxaparin Sodium 40 Mg/0.4 Ml Syringe) 40 mg SUBCUT Q24H [facility] Last Admin: 01/16/25 00:29 Dose: 40 mg Magnesium Hydroxide (Milk Of Magnesia 30 Ml Oral.Susp) 30 ml PO DAILY PRN PRN Reason: Constipation Melatonin (Melatonin 3 Mg Tablet) 6 mg PO BEDTIME PRN PRN Reason: Insomnia Ondansetron HCl (Ondansetron Hcl 4 Mg/2 Ml Vial) 4 mg IVPUSH Q8H PRN PRN Reason: Nausea and Vomiting Oxycodone HCl (Oxycodone Hcl Immed Release 5 Mg Tablet) 5 mg PO Q6H PRN PRN Reason: Pain, Severe (Pain Scale 7-10) Sodium Chloride (0.9 % Sodium Chloride Flush 3 Ml Syringe) 3 ml IVFLUSH QSHIFT [facility] Last Admin: 01/16/25 08:16 Dose: 3 ml Tramadol HCl (Tramadol Hcl 50 Mg Tablet) 50 mg PO Q6H PRN PRN Reason: Pain, Moderate(Pain Scale 4-6) Home Medications ?Medication ?Instructions ?Recorded ?Confirmed ?Last Taken ?Type albuterol sulfate 90 mcg/actuation 2 inh inhalation Q4 H PRN shortness 01/16/25 01/16/25 Unknown History breath activated powder inhaler of breath or wheezing (ProAir RespiClick) cholecalciferol (vitamin D3) 25 25 mcg PO DAILY 01/16/25 Unknown History mcg (1,000 unit) tablet Physical Exam 2 Vital Signs: Vital Signs: Last Vital Signs Temp 97.3 F 01/16/25 06:11 Pulse 93 01/16/25 08:00 Resp 13 01/16/25 08:00 BP 136/67 01/16/25 08:00 Pulse Ox 96 01/16/25 08:00 O2 Del Method Room Air 01/16/25 08:00 BMI result Body Mass Index 43.7 GENERAL APPEARANCE: in no acute distress, pleasant. NECK: no carotid bruit, no jugular venous distention. SKIN: no suspicious lesions, warm and dry. HEART: no murmurs, regular rate and rhythm. LUNGS: clear to auscultation bilaterally. ABDOMEN: soft, nontender. EXTREMITIES: no edema. PERIPHERAL PULSES: equal. NEUROLOGIC: No gross deficits, AAO X 3 Objective Labs and Meds 01/16/25 05:21 01/16/25 05:21 Lab results: Laboratory Results - last 24 hr 01/15/25 01/15/25 01/16/25 21:14 22:52 05:21 WBC 6.0 6.2 RBC 3.97 L 3.81 L Hgb 12.0 11.4 L Hct 34.7 L 33.6 L MCV 87.4 88.2 MCH 30.2 29.9 MCHC 34.6 33.9 RDW 13.3 13.4 Plt Count 264 249 MPV 10.2 10.0 Immature Gran % (Auto) 0.2 0.3 Neut % (Auto) 61.5 55.3 Lymph % (Auto) 27.3 33.0 [place] % (Auto) 6.3 6.4 Eos % (Auto) 3.7 3.9 Baso % (Auto) 1.0 1.1 Lymph # (Auto) 1.6 2.1 [place] # (Auto) 0.4 0.4 Eos # (Auto) 0.2 0.2 Baso # (Auto) 0.1 0.1 Abs Immat Gran (auto) 0.01 0.02 Absolute Neuts (auto) 3.7 3.4 Absolute Nucleated RBC 0.000 0.000 Nucleated RBC % (auto) 0.0 0.0 D-Dimer High Sensitivty < 150 Sodium 143 142 Potassium 4.0 4.1 Chloride 110 H 109 H Carbon Dioxide 25 26 Anion Gap 12 11 L BUN 13 21 H Creatinine 0.86 0.72 Estim Creat Clear Calc 86.7 103.6 Estimated GFR > 60 > 60 Random Glucose 94 97 Calcium 9.3 D 8.9 Magnesium 1.8 2.0 Total Bilirubin 0.2 AST 17 ALT 12 Alkaline Phosphatase 78 Troponin I High Sens < 2.7 < 2.7 Total Protein 6.9 Albumin 4.2 TSH 5.11 H Free T4 1.10 Respiratory Panel Yao Adenovirus (Rapid PCR) B.pert (TEM-PCR) B.parapertussis DNA PCR C. pneumoniae DNA (PCR) Coronavirus OC43 (PCR) Coronavirus HKU1 (PCR) Coronavirus 229E (PCR) Coronavirus NL63 (PCR) Human Metapneumovir PCR Influenza A (RT-PCR) Influenza A (H1) PCR Influ A () PCR Influenza A (H3) PCR Influenza Type A (PCR) Influenza B (RT-PCR) Influenza Type B (PCR) M. pneumoniae (PCR) Parainfluenza 1 (PCR) Parainfluenza 2 (PCR) Parainfluenza 3 (PCR) Parainfluenza 4 (PCR) RSV (PCR) RSV RNA Qual (PCR) Entero/Rhino (PCR) SARS-CoV-2 RNA (RT-PCR) 01/16/25 01/16/25 06:16 06:16 WBC RBC Hgb Hct MCV MCH MCHC RDW Plt Count MPV Immature Gran % (Auto) Neut % (Auto) Lymph % (Auto) [place] % (Auto) Eos % (Auto) Baso % (Auto) Lymph # (Auto) [place] # (Auto) Eos # (Auto) Baso # (Auto) Abs Immat Gran (auto) Absolute Neuts (auto) Absolute Nucleated RBC Nucleated RBC % (auto) D-Dimer High Sensitivty Sodium Potassium Chloride Carbon Dioxide Anion Gap BUN Creatinine Estim Creat Clear Calc Estimated GFR Random Glucose Calcium Magnesium Total Bilirubin AST ALT Alkaline Phosphatase Troponin I High Sens Total Protein Albumin TSH Free T4 Respiratory Panel Yao See Note Adenovirus (Rapid PCR) Not Detected B.pert (TEM-PCR) Not Detected B.parapertussis DNA PCR Not Detected C. pneumoniae DNA (PCR) Not Detected Coronavirus OC43 (PCR) Not Detected Coronavirus HKU1 (PCR) Not Detected Coronavirus 229E (PCR) Not Detected Coronavirus NL63 (PCR) Not Detected Human Metapneumovir PCR Not Detected Influenza A (RT-PCR) Not Detected Influenza A (H1) PCR Not Detected Influ A (H1/09) PCR Not Detected Influenza A (H3) PCR Not Detected Influenza Type A (PCR) NEGATIVE Influenza B (RT-PCR) Not Detected Influenza Type B (PCR) NEGATIVE M. pneumoniae (PCR) Not Detected Parainfluenza 1 (PCR) Not Detected Parainfluenza 2 (PCR) Not Detected Parainfluenza 3 (PCR) Not Detected Parainfluenza 4 (PCR) Not Detected RSV (PCR) Not Detected RSV RNA Qual (PCR) NEGATIVE Entero/Rhino (PCR) Not Detected SARS-CoV-2 RNA (RT-PCR) NEGATIVE Not Detected Assessment and Plan (1) Heart palpitations: Status: Acute Plan Pleasant 59 year female with palpitations. EKG is normal. TSH mildly elevated. She has been walking in the ER and has no symptoms currently. We will arrange Holter monitor and echocardiography for her as outpatient. Can be discharged back home. We will see her as outpatient. Procedures Date of Service Date of Service: 01/16/25
--- NOTE | 2025-01-16 13:14 | MHC.CM.PN ---
PT FULLY INDEPENDENT WITH FAMILY AND IS FULLY INDEPENDENT NO SERVICES/DME NO HCP PCP ON FILE DC TODAY, HOME WITH NO SERVICES VIA PRIVATE TRANSPORT
== END 2025-01-16 11:55 | disposition home or self-care (01) ==
LOC: HO.ED 01-16 00:21 → HO.EDOVER 01-16 00:51
PROVIDERS: Admitting Provider Physician Assistant; Emergency Provider Emergency Medicine Emergency Medical Services; Visit Provider Internal Medicine
DX: R00.2 Palpitations (principal); R55 Syncope and collapse; R07.9 Chest pain, unspecified; E66.01 Morbid (severe) obesity due to excess calories; Z68.41 Body mass index [BMI] 40.0-44.9, adult; Z71.3 Dietary counseling and surveillance; J45.909 Unspecified asthma, uncomplicated; Z79.899 Other long term (current) drug therapy; Z03.818 Encounter for observation for suspected exposure to other biological agents ruled out
CPT/HCPCS: 36415; 71045; 80048; 80053; 83735; 84439; 84443; 84484; 85025; 85379; 87633; 87637; 93005; 96372; 99222; 99285; J1650

== ENCOUNTER → 2025-01-15 20:48 | Outpatient (BNV) | payer OTHER, SELFPAY | PROVIDERS: Admitting Provider Physician Assistant; Emergency Provider Emergency Medicine Emergency Medical Services; Visit Provider Internal Medicine Cardiovascular Disease | DX: R07.89 Other chest pain (principal) | CPT/HCPCS: 93010 ==

== ENCOUNTER → 2025-01-15 22:40 | Outpatient (BNV) | payer OTHER, SELFPAY | PROVIDERS: Emergency Provider Emergency Medicine Emergency Medical Services; Visit Provider Radiology Diagnostic Radiology | DX: R07.89 Other chest pain (principal) | CPT/HCPCS: 71045 ==

== ENCOUNTER → 2025-01-16 00:15 | Outpatient (BNV) | payer OTHER, SELFPAY | PROVIDERS: Admitting Provider Physician Assistant; Emergency Provider Emergency Medicine Emergency Medical Services; Visit Provider Internal Medicine Cardiovascular Disease | DX: R00.2 Palpitations (principal) | CPT/HCPCS: 99222 ==

== ENCOUNTER → 2025-01-16 00:15 | Outpatient (BNV) | payer OTHER, SELFPAY | PROVIDERS: Admitting Provider Physician Assistant; Emergency Provider Emergency Medicine Emergency Medical Services; Visit Provider Physician Assistant | DX: R00.2 Palpitations (principal) | CPT/HCPCS: 99223 ==

== ENCOUNTER 2025-01-18 08:21 | Outpatient (AMB) | payer OTHER, SELFPAY ==
[2025-01-18 08:34] VITALS: BP 132/86; PULSE 84; TEMP 36.1; O2SAT 99; BMI 42.7
--- NOTE | 2025-01-18 08:34 | A.OFFPC_ITS ---
Vital Signs 01/18/25 08:34 Height 5 ft 3 in Weight 241 lb 4 oz BMI 42.7 BP 132/86 Blood Pressure Location Rt brachial Position Sitting Pulse 84 Pulse Source Pulse Oximeter Temp 97.0 F Temp Source Temporal Artery Scan Pulse Oximetry (%) 99 Oxygen Delivery Method Room Air Intake Visit Reasons: [facility] [place] pal[place]ations Allergies docosanol (From Abreva) Allergy (Intermediate, Verified 01/18/25 08:37) Blister Medication List - Last Reconciled 01/18/25 by Emily Adkins PA-C albuterol sulfate 90 mcg/actuation (ProAir RespiClick) 2 inhalations inhalation Q4H PRN cholecalciferol (vitamin D3) 25 mcg PO DAILY compression socks, x-large As directed: 15-20mmHg levothyroxine 137 mcg PO DAILY Tobacco use date assessed: 01/18/25 Dental Screening Dental Screen Date: 01/18/25 Did you have a dental visit in the last 12 months?: No Did you have a dental problem in the last 6 months where you did not have access to dental care?: No Was dental information given to patient?: No HPI [facility] [place] 01/16 palpitations HPI Details 59-year-old female with past medical his tory of hypothyroidism last seen 10/2024 coming in for hospital discharge follow up. In review of the notes, patient was seen in [facility] ED 01/15/2025 for palpitations workup in the ED was negative and admitted for observation with telemetry no events were noted on the monitor and cleared by Cardiology patient was discharged home with recommendations for outpatient echocardiogram. Presenting with heart palpitations and tinnitus. The patient experienced pa lpitations for three days, leading to a hospital visit where tests showed no abnormalities. The palpitations will occasionally occur postprandially and are sometimes accompanied by mild tightness and lightheadedness, but no chest pain or nausea. Otherwise there is no apparent pattern or trigger. The patient reports a constant buzzing in the left ear for one to two months, without pain or hearing loss. A history of ear tube placement during childhood may be relevant. [facility] Medical History Fatty liver Morbid obesity with BMI of 40.0-44.9, adult Hypothyroid Surgical History H/O unilateral oophorectomy Family History Mother Diabetes Father Diabetes Social History Housing: House Alcohol intake: current Alcohol intake frequency: holidays/special occasions only Alcohol type: wine Patient Tobacco Use Status: Never used Tobacco Tobacco use type: Cigarette e-Cigarette/Vaping Use: Never Used Second Hand Smoke Exposure: No service: No Current occupational status: employed Cognitive needs: No Hearing needs: No Vision needs: No Questionnaire PHQ-9 Over the last 2 weeks, how often have you been bothered by any of the following problems? 1. Little interest or pleasure in doing things: not at all 2. Feeling down, depressed, or hopeless: not at all 3. Trouble falling or staying asleep, or sleeping too much: several days 4. Feeling tired or having little energy: several days 5. Poor appetite or overeating: several days 6. Feeling bad about yourself - or that you are a failure or have let yourself or your family down: not at all 7. Trouble concentrating on things, such as reading the newspaper or watching television: not at all 8. Moving or speaking so slowly that other people could have noticed. Or the opposite - being so fidgety or restless that you have been moving around a lot more than usual: not at all 9. Thoughts that you would be better off or of hurting yourself in some way: not at all Total score: 3 Depression Screening Interpretation: Negative Depression Screening Done: Yes Source: Developed by Drs. Jerardo Clay, Janet Olmos, Victor M Perez and colleagues, with an educational cayla from [employer]. Thrive Questionnaire Date Thrive assessed: 01/16/25 I am a: Patient What is your living situation today?: I have a steady place to live Within the past 12 months, did the food you bought not last and you didn't have the money to get more?: Never true Within the past 12 months, did you worry whether your food would run out before you got money to buy more?: Never true Do you have trouble paying for medicines?: No Do you have trouble getting transportation to medical appointments?: No Do you have trouble paying your heating and electricity bill?: Yes Do you have trouble taking care of your child, family member or friend?: No Do you have trouble with day-to-day activities such as bathing, preparing meals, shopping, managing finances, etc.?: No Are you currently unemployed and looking for a job?: No Are you interested in more education?: No Please select the resources that you would like help with: None Currently or been in a relationship where the following occur: No concerns reported THRIVE Score: 1 AUDIT C Alcohol Use Questionnaire (AUDIT-C) 1. How often do you have a drink containing alcohol?: Monthly or less 2. How many drinks containing alcohol do you have on a typical day when you are drinking?: 1 or 2 3. How often do you have six or more drinks on one occasion?: Never Total Score: 1 GUICHO-7 AMB Questionnaire GUICHO-7 Date GUICHO - 7 assessed: 11/08/24 Feeling nervous, anxious, or on edge: 0 = Not at all Not being able to stop or control worryin = Not at all Worrying too much about different things: 0 = Not at all Trouble relaxin = Several days Being so restless that it is hard to sit still: 1 = Several days Becoming easily annoyed or irritable: 0 = Not at all Feeling afraid as if something awful might happen: 0 = Not at all Total GUICHO-7 score (0-4 normal; 5-9 mild; 10-14 moderate; 15-21 severe): 2 Source: Developed by Drs. Jerardo Clay, Janet Olmos, Victor M Perez and colleagues, with an educational cayla from [employer]. Review of Systems Const Denies body aches, Denies chills, Denies fever(s), Denies headache(s) and Denies poor appetite Eyes Reports no additional complaints ENT Reports as per HPI, Denies dysphagia, Denies dizziness, Denies headache(s), Denies odynophagia and Reports tinnitus Card Denies chest pain, Denies syncope, Denies edema, Reports irregular heart rhythm, Denies lightheadedness and Denies dyspnea Resp Denies cough and Denies dyspnea GI Denies dysphagia, Denies nausea, Denies odynophagia and Denies vomiting Reports no additional complaints Musc Reports no additional complaints and Denies abnormal gait Skin/Breast Reports system reviewed and no additional complaints, except as documented Neuro Denies abnormal gait, Denies dizziness, Denies syncope and Denies headache(s) Psych Reports no additional complaints Physical exam (Primary Care) Vital Signs: Last Vital Signs Temp 97.0 F 01/18/25 08:34 BMI result Body Mass Index 42.7 Tobacco/Smoking Status: Tobacco use Status Tobacco use date assessed 11/08/24 11/08/24 08:45 Patient Tobacco Use Status Never used Tobacco 01/16/25 11:36 Tobacco use type Cigarette 11/08/24 08:45 e-Cigarette/Vaping Use Never Used 11/08/24 08:45 Depression Screening Interpretation: Negative Thrive Assessment: Date of Thrive Assessment Date Thrive assessed 01/16/25 01/16/25 13:13 Currently or been in a relationship where the following occur: No concerns reported Const General: cooperative, healthy appearing, comfortable and no acute distress Orientation/consciousness: patient oriented x3 HENMT Head: Yes normocephalic Ears: hearing grossly normal bilaterally, TM's normal bilaterally and EAC's normal General nose exam: Normal external nose present Eyes General: appearance normal, both eyes and all related structures Conjunctivae: conjunctivae normal Pupils: Equal, round and reactive pupils present Neck Neck: Yes full ROM and Yes no lymphadenopathy Resp Effort & Inspection: normal respiratory effort Auscultation: clear to auscultation bilaterally, no crackles, no rales, no rhonchi and no wheezes Cardio Rate: regular rate Rhythm: regular rhythm Skin General skin exam: no rashes or lesions noted Neuro General: patient oriented x3 and gait normal Cranial nerves: Yes CN's II-XII intact bilaterally, Yes Facial sensation intact/muscles of mastication intact, Yes Equal, round and reactive pupils present, Yes Bilaterally intact EOM present, Yes Nystagmus not present, Yes Norm al facial strength present, Yes Midline tongue present, Yes Ability to bilaterally rotate head present and Yes Ability to bilaterally elevate shoulders present Cognition (Neuro): normal cognition Gait exam (Neuro): Normal gait present Motor exam (neuro): 5/5 motor strength present throughout Coordination: [id number] test normal and [id number] test normal Extrem General: Yes normal to inspection, Yes full ROM and No edema Psych Affect: normal affect Attitude: cooperative Insight: Good insight present (Psych) Judgement: Good judgement present (Psych) Coding Level of Care Code Est Pt Level 4 (38931) Diagnoses Heart palpitations R00.2 Unilateral subjective nonpulsatile tinnitus without hearing loss, otoscopic finding, neurologic deficit, or head trauma H93.19 Assessment & Plan Assessment & Plan (1) Heart palpitations: Code(s): R00.2 - Palpitations Category: Medical Plan: The patient will undergo a 14-day Holter monitor to capture any episodes of palpitations and an echocardiogram to assess cardiac function. The patient is advised to keep a log of palpitations, noting the duration, associated symptoms, and activities during episodes. Consider referral to cardiology. (2) Unilateral subjective nonpulsatile tinnitus without hearing loss, otoscopic finding, neurologic deficit, or head trauma: Code(s): H93.19 - Tinnitus, unspecified ear Category: Medical Plan: A hearing test is recommended to evaluate for any asymmetrical hearing loss, which could indicate an underlying issue. The patient is advised on masking techniques to manage tinnitus, such as using a white noise machine or background music. Neuro exam was normal today. Consider CT head for further evaluation. Reviewed with patient red flag symptoms including but not limited to pulsatile tinnitus and clear drainage from the ear. Plan This note was constructed using voice recognition software. While every effort has been made to ensure accuracy and senior commissary agent, still areas may have been included sometimes these areas may affect the content or meeting of the given symptoms. Total time spent caring for the patient today was 20 minutes. This includes time spent before the visit reviewing the chart, time spent during the visit, and time spent after the visit and documentation. Patient was informed and verbally consented to the use of an ambient scribe for clinic note documentation during this visit. Orders: Referrals Speech and Hearing Referral H93.19 - Tinnitus, unspecified ear
== END 2025-01-18 09:04 | disposition home or self-care (01) ==
DX: R00.2 Palpitations (principal); H93.19 Tinnitus, unspecified ear

== ENCOUNTER → 2025-01-18 08:21 | Outpatient (BNVA) | payer OTHER, SELFPAY | DX: R00.2 Palpitations (principal); E03.9 Hypothyroidism, unspecified; H93.19 Tinnitus, unspecified ear | CPT/HCPCS: 99212 ==

== ENCOUNTER 2025-03-03 14:32 | Outpatient (REF) | payer OTHER, SELFPAY | END 2025-03-03 14:33 | disposition home or self-care (01) | LOC: HO.LAB 14:32 | PROVIDERS: Visit Provider Nurse Practitioner Family | DX: J45.901 Unspecified asthma with (acute) exacerbation (principal); Z79.51 Long term (current) use of inhaled steroids; Z79.899 Other long term (current) drug therapy | CPT/HCPCS: 94640; 99212 ==

== ENCOUNTER 2025-03-03 14:32 | Outpatient (AMB) | payer OTHER, SELFPAY ==
[2025-03-03 14:56] VITALS: BP 142/80; PULSE 91; TEMP 36.9; O2SAT 98; BMI 44.8
--- NOTE | 2025-03-03 14:56 | AM.OFFWIN_ITS ---
Intake Vital Signs 03/03/25 14:56 Height 5 ft 3 in Weight 253 lb BMI 44.8 BP 142/80 H Blood Pressure Location Lt brachial Position Sitting Pulse 91 Pulse Source Pulse Oximeter Temp 98.4 F Temp Source Oral Pulse Oximetry (%) 98 Intake Visit Reasons: EP-cold symptoms Intake Note: pt is here for stuffy nose, congestion, headache, asthma bothering patient Patient Tobacco Use Status: Never used Tobacco Allergies [facility] ([facility]) Allergy (Intermediate, Verified 03/03/25 14:56) Blister Medication List - Last Reconciled 03/03/25 by Deepti Rendon NP albuterol sulfate 90 mcg/actuation (ProAir RespiClick) 2 inhalations inhalation Q4H PRN budesonide-formoterol 80-4.5 mcg/actuation (Symbicort) 2 puffs inhalation BID cholecalciferol (vitamin D3) 25 mcg PO DAILY compression socks, x-large As directed: 15-20mmHg doxycycline hyclate 100 mg PO BID 10 days levothyroxine 137 mcg PO DAILY prednisone 50 mg PO DAILY 5 days pseudoephedrine HCl ER (Sudafed 12 Hour) 120 mg PO Q12H Do you need a note to return to daycare/school/sports/work: Yes HPI HPI Comments History of Present Illness Details 59 y/o Female patient [facility] with complaints of nasal congestion, sinus pressure, headaches, wheezing, cough, shortness of breath, and body chills for the past 4 days. Reports history of asthma and currently uses Albuterol rescue inhaler. Denies fevers, nausea, or vomiting. [facility] Medical History (Updated 03/03/25 @ 15:41 by Deepti Rendon NP) Asthma with acute exacerbation Fatty liver Morbid obesity with BMI of 40.0-44.9, adult Hypothyroid Surgical History H/O unilateral oophorectomy Family History Mother Diabetes Father Diabetes Social History Housing: House Alcohol intake: current Alcohol intake frequency: holidays/special occasions only Alcohol type: wine Patient Tobacco Use Status: Never used Tobacco Tobacco use type: Cigarette e-Cigarette/Vaping Use: Never Used Second Hand Smoke Exposure: No service: No Current occupational status: employed Cognitive needs: No Hearing needs: No Vision needs: No Review of Systems Const All systems reviewed & are unremarkable except as noted in HPI and below Physical Exam Vital Signs: Last Vital Signs Temp 98.4 F 03/03/25 14:56 Pulse 91 03/03/25 14:56 BP 142/80 H 03/03/25 14:56 Pulse Ox 98 03/03/25 14:56 BMI result Body Mass Index 44.8 Const General: no acute distress Nutritional Appearance: obese Orientation/consciousness: patient oriented x3 HEENT Head: Yes normocephalic Ears: external ears normal and TM abnormal bulging bilateral and with fluid behind the TM bilateral General nose exam: Abnormal mucous membranes and turbinates present erythematous and Nasal discharge present Face and sinus: Yes sinuses nontender Mouth: moist mucous membranes Throat: Yes uvula midline Resp Effort & Inspection: normal respiratory effort, able to speak in complete sentences and Actively coughing Auscultation: no crackles, no rales, rhonchi and wheezes scattered wheezes Cardio Heart sounds: S1 normal heart sound present and S2 normal heart sound present Neuro General: patient oriented x3, gait normal and moves all extremities Psych Speech and movement: Normal speech and movement present Office Procedures Nebulizer Treatment Nebulizer Treatment [id number] RX initial, or Nebulizer Subsequent Treatment Office Meds ipratropium 0.5 mg-albuterol 3 mg (2.5 mg base)/3 mL nebulization soln Performing Provider: Deepti Rendon NP Performing Location: [facility] [place] [facility] Administered by: Deepti Rendon NP on 03/03/25 15:43 Dose Route Admin Location Dispensed Lot Number Expiration Date [facility] 3 mL inhalation 3 mL Assessment & Plan Assessment & Plan (1) Asthma with acute exacerbation: Code(s): J45.901 - Unspecified asthma with (acute) exacerbation Plan: Acute Sinusitis vs. Viral Upper Respiratory Infection Asthma Exacerbation ? likely triggered by upper respiratory infection Continue Albuterol inhaler as needed for wheezing/SOB. Added Symbicort for Daily use. Ordered Doxy BID for 10 days. Ordered Prednisone for 5 days. Avoid exposure to cold air or respiratory irritants Return if symptoms worsen, persist beyond 10 days, or new symptoms develop (fever, chest pain, productive cough with colored sputum) Follow-up with PCP or resident intern for asthma management if recurrent exacerbations Orders: Orders AMB Nebulizer Treatment Today J45.901 - Unspecified asthma with (acute) exacerbation SARS-CoV2/FLU/RSV Today J45.90 - Unspecified asthma with (acute) exacerbation Medications: New pseudoephedrine HCl ER (Sudafed 12 Hour) 120 mg PO Q12H 20 tabs 0RF J45.90 - Unspecified asthma with (acute) exacerbation prednisone 50 mg PO DAILY 5 tabs 0RF 5 days J45. - Unspecified asthma with (acute) exacerbation budesonide-formoterol 80-4.5 mcg/actuation (Symbicort) 2 puffs inhalation BID 10.2 grams 2RF J45. - Unspecified asthma with (acute) exacerbation doxycycline hyclate 100 mg PO BID 20 caps 0RF 10 days J45. - Unspecified asthma with (acute) exacerbation Coding Level of Care Code Est Pt Level 4 (28231) Diagnoses Asthma with acute exacerbation J45.901 CPT Codes Nebulizer Treatment - Nebulizer Treatment, initial or subsequent: 88693- Nebulizer/MDI RX initial, or Nebulizer Subsequent Treatment ([id number]) Time Spent (min) 20
== END 2025-03-03 16:03 | disposition home or self-care (01) ==
PROVIDERS: Visit Provider Nurse Practitioner Family
DX: J45.901 Unspecified asthma with (acute) exacerbation (principal)

== ENCOUNTER 2025-03-04 10:21 | Outpatient (REF) | payer OTHER, SELFPAY ==
[2025-03-04 11:21] LABS: Resp Syncy Virus RNA Qual PCR NEGATIVE (Negative); SARS COV2 PCR INHOUSE NEGATIVE (Negative)
== END 2025-03-04 10:22 | disposition home or self-care (01) ==
LOC: HO.LNP 10:21
PROVIDERS: Visit Provider Nurse Practitioner Family
DX: J45.901 Unspecified asthma with (acute) exacerbation (principal)
CPT/HCPCS: 87637